=== PATIENT | male | born 1970 | race American Indian/Alaskan Native ===

== ENCOUNTER 2016-02-29 15:57 | Inpatient (IN) | payer OTHER ==
--- NOTE | 2016-02-29 17:36 | Emergency Department Report ---
Chief Complaint: GI Bleed Stated Complaint: RECTAL BLEED Time Seen by Provider: 02/29/16 17:44 - HPI History of Present Illness: Patient here reports that he has been coughing up blood and having rectal bleeding for 2 days. He said that last time he had see had pneumonia with coughing up blood. He said he has hemorrhoids and when he wiped he saw bright red blood several times. He is complaining of generalized weakness. Reports shortness of breath. He said he was seen at [facility] for elevated blood sugar 2 days ago and they treated him and he was discharged. Patient is diabetic she is also has a history of A. fib on Coumadin and has not taken any of his medication today. Denies any fever or chills. Denies any recent weight loss. - ROS Review of Systems: All systems are negative unless stated in HPI above. - Exam Vital Signs: Vital Signs 02/29/16 16:44 Temperature 98.4 F Pulse Rate 126 H Respiratory 20 Rate Blood Pressure 159/108 O2 Sat by Pulse 98 Oximetry Physical Exam: General: This is a 45-year-old male well-nourished well-developed nontoxic in appearance. CV: Tachycardic at 126. Blood pressure is 159/108. A. fib at 110 per EKG . lungs:CTAB. MSE screening note: Focused history and physical exam performed. Due to findings the following was ordered:see [facility] ED Medical Decision Making - Medical Decision Making Medical decision making: Patient seen by provider in triage area. Appropriate protocol activated and patient to main ED to be seen by physician. ED Disposition for MSE Condition: Stable Forms: Accompanied Note
[2016-02-29] MEDS ORDERED: NACL 0.9% 1000 ML 1,000 ML IV ONE (17:39)
[2016-02-29 18:02] LABS: Basophils % (Auto) 0.2 % (0.0-1.8); Eosinophils % (Auto) 0.1 % (0.0-4.3); Hematocrit 33.6 % (35.5-45.6); Hemoglobin 10.6 gm/dl (11.8-15.2); Mean Corpuscular HGB Conc 32 % (32-34); Mean Corpuscular Volume 72 fl (84-94); Platelet Count 443 K/mm3 (140-440); Red Blood Count 4.66 M/mm3 (3.65-5.03); Red Cell Distribution Width 18.8 % (13.2-15.2); White Blood Count 15.9 K/mm3 (4.5-11.0)
[2016-02-29 18:13] LABS: INR 1.69 (0.87-1.13)
[2016-02-29 18:14] LABS: Mean Corpuscular Hemoglobin 23 pg (28-32); Partial Thromboplastin Time 47.9 Sec. (24.2-36.6)
[2016-02-29 19:23] LABS: Bilirubin,Urine NEG (Negative); Blood,Urine NEG (Negative); Ketones,Urine NEG (Negative); Leukocyte Esterase,Urine NEG (Negative); Mucus,Urine FEW /HPF; Nitrite,Urine NEG (Negative); Urobilinogen,Urine < 2.0 mg/dL (<2.0)
[2016-02-29 19:24] LABS: Alanine Aminotransferase 10 units/L (7-56); Albumin 3.3 g/dL (3.9-5); Albumin/Globulin Ratio 0.8 %; Alkaline Phosphatase 151 units/L (35-129); Amylase 86 units/L (27-131); BUN/Creatinine Ratio 13.33; Blood Urea Nitrogen 8 mg/dL (9-20); Calcium 8.8 mg/dL (8.4-10.2); Carbon Dioxide 22 mmol/L (22-30); Glucose 227 mg/dL (75-100); Lipase 16 units/L (13-60); Potassium 4.4 mmol/L (3.6-5.0); Sodium 133 mmol/L (137-145); Total Protein 7.5 g/dL (6.3-8.2)
[2016-02-29 19:26] LABS: Anion Gap 17 mmol/L
[2016-02-29] MEDS ORDERED: ZITHROMAX 500 MG in NACL 0.9% 250ML 250 ML IV ONE (21:20)
[2016-02-29] MEDS ORDERED: ROCEPHIN/NS 1 GM/50 ML 50 ML IV ONE (21:21)
--- NOTE | 2016-02-29 21:32 | XRay Report ---
FINAL REPORT PROCEDURE: XR CHEST ROUTINE 2V TECHNIQUE: PA and lateral chest radiographs were obtained. CPT 00389 HISTORY: hemoptysis COMPARISON: No prior studies are available for comparison. FINDINGS: Heart: Normal. Mediastinum/Vessels: Normal. Lungs/Pleural space: There are bilateral mid and lower lung airspace opacities. Right pleural effusion with fluid along the fissure. Bony thorax: No acute osseous abnormality. Other: IMPRESSION: Right greater than left infiltrates or edema with pleural effusion..
--- NOTE | 2016-02-29 21:36 | Emergency Department Report ---
- General Chief Complaint: GI Bleed Stated Complaint: RECTAL BLEED Time Seen by Provider: 02/29/16 17:49 Source: patient Mode of arrival: Ambulatory Limitations: No Limitations - History of Present Illness Initial Comments: 45-year-old male with a past medical history of type 2 diabetes, hypertension, atrial fibrillation, hyperlipidemia, hyperthyroidism, tuberculosis in 2002, and anemia presents to the hospital complains of coughing blood and shortness of breath since yesterday. Patient developed cough last night that is productive of bloody sputum. Dyspnea on exertion reported. Denies fever, pain, weight loss, night sweats, orthopnea, or PND. Patient also states intermittent rectal bleeding for the last 2 days it has a history of hemorrhoids. Blood is red in color and denies melena. No abdominal pain reported. Patient is on Coumadin for atrial fibrillation but did not take his medications today. Patient was seen at [facility] 2 days ago for elevated blood sugar. He was treated at discharge from the ED. last HIV test 2012 PMD: Dr. Arechiga airport clerk: Dr. Bolaños - Related Data Home Medications Medication Instructions Recorded Confirmed Last Taken Metoprolol [Lopressor TAB] 50 mg PO DAILY 01/23/15 01/27/15 01/24/15 glipiZIDE [Glucotrol] 10 mg PO BID 01/23/15 01/27/15 01/27/15 Previous Rx's Medication Instructions Recorded Last Taken Type Amiodarone [Cordarone 200 MG TAB] 200 mg PO QDAY #30 tablet 10/10/14 01/24/15 Rx Lisinopril [Zestril TAB] 10 mg PO DAILY #30 tablet 10/10/14 01/24/15 Rx Warfarin [Coumadin] 5 mg PO DAILY@1700 #30 tablet 10/10/14 01/24/15 Rx metFORMIN [Glucophage] 1,000 mg PO BID #60 tablet 10/10/14 01/24/15 Rx Famotidine [Pepcid] 20 mg PO BID #28 tablet 01/28/15 Unknown Rx HYDROcodone/APAP 5-325 [Nora 1 each PO Q6HR PRN #12 tablet 01/28/15 Unknown Rx 5/325] Ondansetron [Zofran Odt] 4 mg PO Q8HR #10 tab.rapdis 03/09/15 Unknown Rx Allergies Allergy/AdvReac Type Severity Reaction Status Date / Time No Known Allergies Allergy Verified 10/04/14 10:38 ED Review of Systems ROS: Stated complaint: RECTAL BLEED Other details as noted in HPI Comment: All other systems reviewed and negative Other: Constitutional: No fevers chills Eyes: No eye pain visual changes ENT: No ear pain or throat pain Neck: Denies pain Respiratory: As per HPI Cardiovascular: Denies chest pain, palpitations, syncope GI: Denies abdominal pain, nausea, vomiting, diarrhea : Denies dysuria, urinary frequency, or urgency Musculoskeletal: Denies back pain, joint swelling Skin: Denies rash, lesions, erythema Neurologic: Denies headache, numbness, weakness Psychiatric: Denies suicidal ideation, hallucinations ED Past Medical Hx - Past Medical History Previous Medical History?: Yes Hx Hypertension: Yes Hx Diabetes: Yes (type 2) Hx Tuberculosis: Yes (2002) Additional medical history: hyperthyroid disease. Anemia. hyperlipidemia. AFIB - Surgical History Past Surgical History?: No - Social History Smoking Status: Current Every Day Smoker Substance Use Type: Other - Medications Home Medications: Home Medications Medication Instructions Recorded Confirmed Last Taken Type Amiodarone [Cordarone 200 MG TAB] 200 mg PO QDAY #30 tablet 10/10/14 01/27/15 Rx Lisinopril [Zestril TAB] 10 mg PO DAILY #30 tablet 10/10/14 01/27/15 01/24/15 Rx Warfarin [Coumadin] 5 mg PO DAILY@1700 #30 tablet 10/10/14 01/27/15 01/24/15 Rx metFORMIN [Glucophage] 1,000 mg PO BID #60 tablet 10/10/14 01/27/15 01/24/15 Rx Metoprolol [Lopressor TAB] 50 mg PO DAILY 01/23/15 01/27/15 01/24/15 History glipiZIDE [Glucotrol] 10 mg PO BID 01/23/15 01/27/15 01/27/15 History Famotidine [Pepcid] 20 mg PO BID #28 tablet 01/28/15 Unknown Rx HYDROcodone/APAP 5-325 [Nora 1 each PO Q6HR PRN #12 tablet 01/28/15 Unknown Rx 5/325] Ondansetron [Zofran Odt] 4 mg PO Q8HR #10 tab.rapdis 03/09/15 Unknown Rx ED Physical Exam - General Limitations: No Limitations - Other Other exam information: General: No limitations, patient is alert in no acute distress Head exam: Atraumatic, normocephalic Eyes exam: Normal appearance, pupils equal reactive to light, extraocular movements intact ENT: Moist mucous membrane, normal oropharynx Neck exam: Normal inspection, full range of motion, no meningismus nontender Respiratory exam: Clear to auscultation bilateral, no wheezes, rales, crackles Cardiovascular: Tachycardic fairly regular but with early beats auscultated Abdomen: Soft, nondistended, and nontender, with normal bowel sounds, no rebound, or guarding Rectal: brown stool, guaic positive Extremity: Full range of motion normal inspection no deformity Back: Normal Inspection, full range of motion, no tenderness Neurologic: Alert, oriented x3, cranial nerves intact, no motor or sensory deficit Psychiatric: normal affect, normal mood Skin: Warm, dry, intact ED Course Vital Signs 02/29/16 02/29/16 02/29/16 16:44 21:08 21:40 Temperature 98.4 F 98.0 F Pulse Rate 126 H 109 H Respiratory 20 18 20 Rate Blood Pressure 159/108 Blood Pressure 172/93 [Right] O2 Sat by Pulse 98 98 Oximetry - Reevaluation(s) Reevaluation #1: 02/29/16 21:36 Azithromycin and Rocephin ordered ED Medical Decision Making - Lab Data Result diagrams: 02/29/16 17:46 02/29/16 17:46 Lab Results 02/29/16 02/29/16 02/29/16 Range/Units 17:00 17:43 17:46 WBC 15.9 H (4.5-11.0) K/mm3 RBC 4.66 (3.65-5.03) M/mm3 Hgb 10.6 L (11.8-15.2) gm/dl Hct 33.6 L (35.5-45.6) % MCV 72 L (84-94) fl MCH 23 L (28-32) pg MCHC 32 (32-34) % RDW 18.8 H (13.2-15.2) % Plt Count 443 H (140-440) K/mm3 Lymph % (Auto) 10.9 L (13.4-35.0) % [place] % (Auto) 5.0 (0.0-7.3) % Eos % (Auto) 0.1 (0.0-4.3) % Baso % (Auto) 0.2 (0.0-1.8) % Lymph # 1.7 (1.2-5.4) K/mm3 [place] # 0.8 (0.0-0.8) K/mm3 Eos # 0.0 (0.0-0.4) K/mm3 Baso # 0.0 (0.0-0.1) K/mm3 Seg Neutrophils % 83.8 H (40.0-70.0) % Seg Neutrophils # 13.3 H (1.8-7.7) K/mm3 PT (12.2-14.9) Sec. INR (0.87-1.13) APTT (24.2-36.6) Sec. Sodium (137-145) mmol/L Potassium (3.6-5.0) mmol/L Chloride (98-107) mmol/L Carbon Dioxide (22-30) mmol/L Anion Gap mmol/L BUN (9-20) mg/dL Creatinine (0.8-1.5) mg/dL Estimated GFR ml/min BUN/Creatinine Ratio % Glucose (75-100) mg/dL POC Glucose 218 H (70-105) Calcium (8.4-10.2) mg/dL Total Bilirubin (0.1-1.2) mg/dL AST (5-40) units/L ALT (7-56) units/L Alkaline Phosphatase (35-129) units/L Total Protein (6.3-8.2) g/dL Albumin (3.9-5) g/dL Albumin/Globulin Ratio % Amylase (27-131) units/L Lipase (13-60) units/L Urine Color Yellow (Yellow) Urine Turbidity Clear (Clear) Urine pH 8.0 H (5.0-7.0) Ur Specific [place] 1.017 (1.003-1.030) Urine Protein 100 mg/dl (Negative) mg/dL Urine Glucose (UA) 50 (Negative) mg/dL Urine Ketones Neg (Negative) mg/dL Urine Blood Neg (Negative) Urine Nitrite Neg (Negative) Urine Bilirubin Neg (Negative) Urine Urobilinogen < 2.0 (<2.0) mg/dL Ur Leukocyte Esterase Neg (Negative) Urine WBC (Auto) 3.0 (0.0-6.0) /HPF Urine RBC (Auto) 3.0 (0.0-6.0) /HPF U Epithel Cells (Auto) 1.0 (0-13.0) /HPF Urine Mucus Few /HPF Blood Type Antibody Screen 02/29/16 02/29/16 02/29/16 Range/Units 17:46 17:46 17:46 WBC (4.5-11.0) K/mm3 RBC (3.65-5.03) M/mm3 Hgb (11.8-15.2) gm/dl Hct (35.5-45.6) % MCV (84-94) fl MCH (28-32) pg MCHC (32-34) % RDW (13.2-15.2) % Plt Count (140-440) K/mm3 Lymph % (Auto) (13.4-35.0) % [place] % (Auto) (0.0-7.3) % Eos % (Auto) (0.0-4.3) % Baso % (Auto) (0.0-1.8) % Lymph # (1.2-5.4) K/mm3 [place] # (0.0-0.8) K/mm3 Eos # (0.0-0.4) K/mm3 Baso # (0.0-0.1) K/mm3 Seg Neutrophils % (40.0-70.0) % Seg Neutrophils # (1.8-7.7) K/mm3 PT 19.9 H (12.2-14.9) Sec. INR 1.69 H (0.87-1.13) APTT 47.9 H (24.2-36.6) Sec. Sodium 133 L (137-145) mmol/L Potassium 4.4 (3.6-5.0) mmol/L Chloride 98.0 (98-107) mmol/L Carbon Dioxide 22 (22-30) mmol/L Anion Gap 17 mmol/L BUN 8 L (9-20) mg/dL Creatinine 0.6 L (0.8-1.5) mg/dL Estimated GFR > 60 ml/min BUN/Creatinine Ratio 13.33 % Glucose 227 H (75-100) mg/dL POC Glucose (70-105) Calcium 8.8 (8.4-10.2) mg/dL Total Bilirubin 1.0 (0.1-1.2) mg/dL AST 13 (5-40) units/L ALT 10 (7-56) units/L Alkaline Phosphatase 151 H (35-129) units/L Total Protein 7.5 (6.3-8.2) g/dL Albumin 3.3 L (3.9-5) g/dL Albumin/Globulin Ratio 0.8 % Amylase 86 (27-131) units/L Lipase 16 (13-60) units/L Urine Color (Yellow) Urine Turbidity (Clear) Urine pH (5.0-7.0) Ur Specific [place] (1.003-1.030) Urine Protein (Negative) mg/dL Urine Glucose (UA) (Negative) mg/dL Urine Ketones (Negative) mg/dL Urine Blood (Negative) Urine Nitrite (Negative) Urine Bilirubin (Negative) Urine Urobilinogen (<2.0) mg/dL Ur Leukocyte Esterase (Negative) Urine WBC (Auto) (0.0-6.0) /HPF Urine RBC (Auto) (0.0-6.0) /HPF U Epithel Cells (Auto) (0-13.0) /HPF Urine Mucus /HPF Blood Type O POSITIVE Antibody Screen Negative - EKG Data -: EKG Interpreted by Me (sinus tach 110 PACs) - EKG Data When compared to previous EKG there are: no significant change (compared to ) - Radiology Data Radiology results: report reviewed (chest x-ray: Right versus left infiltrate versus edema) - Medical Decision Making pt placed into res isolation. Rocephin and azithromycin initiated. Plan to admit patient to the hospital for further management - Differential Diagnosis pneumonia, bronchitis, CHF, tuberculosis Critical Care Time: No Critical care attestation.: If time is entered above; I have spent that time in minutes in the direct care of this critically ill patient, excluding procedure time. ED Disposition Clinical Impression: Tachycardia, Pneumonia, Anticoagulated on Coumadin, Hypertension, Hyperglycemia due to type 2 diabetes mellitus, Guaiac + stool Disposition: OP ADMITTED IP TO THIS HOSP Is pt being admited?: Yes Condition: Stable Time of Disposition: 21:38 (Dr houston/hosp)
--- NOTE | 2016-02-29 22:48 | Admit Criteria Form ---
Admission Criteria Documentation: DIABETES Clinical Indications for Admission to Inpatient Care (Place 'X' for any and all applicable criteria): Admission is indicated by presence of ALL (if I & II) or ANY ONE (if III or IV) of the following (1)(2)(3)(4): [ ]I. Diabetes is uncontrolled as indicated by ANY ONE of the following: [ ]a) Diabetic ketoacidosis as indicated by ALL of the following (8): [ ]i) Hyperglycemia (eg, plasma glucose greater than 200 mg/ dL (11.1 mmol/L)) [ ]ii) Acidosis (eg, arterial pH less than 7.30, serum bicarbonate level less than 15 mEq/L (mmol/L)) [ ]iii) Moderate ketonuria or ketonemia [ ]b) Hyperglycemic hyperosmolar state as indicated by ALL of the following(9)(10): [ ]i) Neurologic dysfunction (eg, stupor, coma, hemiparesis , seizure)(13) [ ]ii) Plasma glucose greater than 600 mg/dL (33.3 mmol/L) [ ]iii) Serum osmolality greater than 320 mOsm/kg (mmol/kg) [ ]c) Severe signs or symptoms secondary to hyperglycemia indicated by ANY ONE of the following: [ ]i) Altered mental status(10) [ ]ii) Significant hypovolemia or dehydration [ ]iii) Intractable nausea or vomiting [ ]iv) Unexplained fever or severe infection [ ]v) Severe electrolyte abnormality (eg, hypokalemia, hyperkalemia, hypernatremia) [ ]II. Management at other levels of care (Also use Diabetes: Observation Care as appropriate) is not feasible because of ANY ONE of the following: [ ]a) Condition was not adequately corrected with treatment at other levels of care. [ ]b) Treatment at other levels of care is not appropriate because of condition severity (eg, hyperosmolar coma). [ X]III. Contraindications and/or Inappropriate clinical situations for Observational Care in patients with Diabetes, when ANY ONE of the following is required: [X ]a) Patient require specific diagnostic workup or therapeutic intervention 22 [ ]b) Patient with abnormal vital signs or altered mental status 23 [X ]IV. General contraindications and/or Inappropriate clinical situations for Observational Care in patients with Diabetes, when ANY ONE of the following is required: [ X]a) Prediction of prolongation of LOS based on ANY ONE of the following may be considered as a contraindication for observational care 2, 3, 4, 5, 6, 7, 8, 9, 10, 11 [ ]i) Age > 65 yrs. [ ]ii) Patient arriving by ambulance [ ]iii) Patient with high acuity [ ]iv) Patient requiring vital sign monitoring [X ]v) Patient on IV medication [ ]b) Systolic blood pressures 180mmHg 3,12 [ ]c) Patient with altered mental status including delirium and other alteration of consciousness, (3) [ ]d) Patient whose discharge disposition will be to a fdc home or rehabilitation home should not be managed in Emergency Department Observation Unit. CMS rule requires 3 days hospital stay before such placement.3,13 [ ]e) Patient with failure to thrive due to broad array of etiologies 3,16,17 [ ]f) Inability to ambulate 3,14 Extended stay beyond goal length of stay may be needed for(3)(20): [ ]a) Treatment of precipitating causes [ ]b) Development of hypoglycemia [ ]c) Complications of treatment [ ]d) Complications of decompensated diabetes (eg, acute gastric dilatation, persistent metabolic or neurologic derangement) [ ]e) Active Comorbidities [ ]f) Older patients( 65 years or older) The original [employer] content created by [employer] has been revised. The portions of the content which have been revised are identified through the use of italic text or in bold,and [facility] has neither reviewed nor approved the modified material. All other unmodified content is copyright [employer]. Please see references footnoted in the original [facility]formerly [facility] [employer] edition 2016 Admission Criteria Met: Yes
[2016-02-29] MEDS ORDERED: PERCOCET 5/325 PO PRN (22:53)
[2016-02-29] MEDS ORDERED: DULCOLAX PR PRN (22:53)
[2016-02-29] MEDS ORDERED: TYLENOL PO PRN (22:53)
[2016-02-29] MEDS ORDERED: MILK OF MAGNESIA PO PRN (22:53)
[2016-02-29] MEDS ORDERED: ZOFRAN IV PRN (22:53)
--- NOTE | 2016-02-29 22:56 | Cat Scan Report ---
FINAL REPORT PROCEDURE: CT CHEST WO CON TECHNIQUE: Computerized axial tomography of the chest was performed without contrast material. HISTORY: cough, ab cxr COMPARISON: Chest x-ray TECHNICAL QUALITY: Satisfactory. FINDINGS: Heart and pericardium: Normal. Thoracic aorta: Normal. Pulmonary vasculature: Normal. Lymph nodes: No enlarged thoracic lymph nodes. Lungs: There are bilateral upper and lower lung interstitial ground-glass and airspace opacities. Pleural space: Small right pleural effusion with fluid along the fissure.. Musculoskeletal structures: No significant abnormality. Upper abdominal structures: No significant abnormality. IMPRESSION: Bilateral infiltrates or edema. Right pleural effusion.
--- NOTE | 2016-03-01 01:11 | History and Physical Report ---
History of Present Illness Date of examination: 02/29/16 Date of admission: 02/29/16 22:16 History of present illness: 45 with history of hypertension, diabetes complicated by gastroparesis, ARea guzmán on Coumadin comes to the emergency room with complaints of cough that started last night productive of yellow blood-tinged sputum. He denies any fever or chills, weight loss, night sweats, sick contacts, recent travel. Patient was hospitalized a week ago for gastroparesis. Admits to blood per rectum when he wiped 1 episode. He has a history of hemorrhoids Patient denies chest pain, palpitation, shortness of breath, abdominal pain, hematochezia, dysuria, frequency, focal weakness, dysarthria, fever chills, polydipsia polyuria, hot or cold intolerance, easy bruisability, or rash or bleeding from mucosal membrane, rhinorrhea, epistaxis, earache, tinnitus, blurry vision, eye discharge, anxiety, depression. Other review of systems negative PAST SURGICAL HISTORY: None SOCIAL HISTORY: Denies alcohol, tobacco, drugs FAMILY HISTORY: Hypertension Medications and Allergies Allergies Allergy/AdvReac Type Severity Reaction Status Date / Time No Known Allergies Allergy Verified 10/04/14 10:38 Home Medications Medication Instructions Recorded Confirmed Last Taken Type Warfarin [Coumadin] 5 mg PO DAILY@1700 #30 tablet 10/10/14 01/27/15 02/28/16 Rx metFORMIN [Glucophage] 1,000 mg PO BID #60 tablet 10/10/14 01/27/15 02/28/16 Rx glipiZIDE [Glucotrol] 10 mg PO BID 01/23/15 01/27/15 02/29/16 History Metoclopramide [Reglan ORAL LIQ] 10 mg PO 02/29/16 02/28/16 History Active Meds: Active Medications Acetaminophen (Tylenol) 650 mg PO Q4H PRN PRN Reason: Pain MILD(1-3)/Fever >100.5/TO Bisacodyl (Dulcolax) 10 mg ME QDAY PRN PRN Reason: Constipation unrelieved by MOM Hydralazine HCl (Apresoline) 5 mg IV Q6HR PRN PRN Reason: Hypertension Levofloxacin/Dextrose (Levaquin 750mg/150ml) 150 mls @ 100 mls/hr IV Q24HR SXITO PRN Reason: Protocol Piperacillin Sod/Tazobactam Sod (Zosyn/Ns 4.5gm/100ml) 100 mls @ 100 mls/30 min IV Q8HR SIXTO PRN Reason: Protocol Magnesium Hydroxide (Milk Of Magnesia) 30 ml PO Q4H PRN PRN Reason: Constipation Ondansetron HCl (Zofran) 4 mg IV Q4H PRN PRN Reason: N/V unrelieved by Reglan Oxycodone/Acetaminophen (Percocet 5/325) 1 tab PO Q6H PRN PRN Reason: Pain, Moderate (4-6) Exam - Physical Exam Narrative exam: Gen. appearance: Patient lying in bed, no apparent distress HEENT: Normocephalic, atraumatic, pupils equally round and reactive to light, extraocular movement intact, and no sclericterus,. No JVD or thyromegaly or nodule,neck supple, no carotid bruit ,mucous membranes moist, no exudate or erythema Heart: S1, S2, regular rate and rhythm Lungs: Crackles on the right, breathing comfortable Abdomen: Positive bowel sounds, nontender, nondistended, no organomegaly Extremity: No edema, cyanosis, clubbing Skin: No rash, nodules, warm, dry Neuro: Oriented 3, cranial nerves II-12 intact, speech is fluent, motor and sensory intact - Constitutional Vitals: Temp Pulse Resp BP Pulse Ox 98.7 F 119 H 16 170/107 100 02/29/16 22:48 02/29/16 22:48 02/29/16 22:48 02/29/16 22:48 02/29/16 22:48 Results - Labs CBC & Chem 7: 02/29/16 17:46 02/29/16 17:46 - Imaging and Cardiology EKG: image reviewed Chest x-ray: image reviewed Assessment and Plan Healthcare associated pneumonia, rule out TB Hypertension Diabetes type 2 A. fib with subtherapeutic INR Brown, Heme positive stool History of hemorrhoids Admits medicine Start IV Zosyn, Levaquin Obtain sputum culture, AFB, place on isolation Obtain CT chest Monitor hemoglobin, patient"s positive stool most likely secondary to hemorrhoids Check fingersticks and initiate insulin sliding scale Continue appropriate outpatient medications, start DVT prophylaxis with SCD
[2016-03-01] MEDS: ZOSYN/NS 4.5GM/100ML 100 ML IV SCH ×3 (01:30→14:50)
[2016-03-01 08:31] LABS: Basophils % (Auto) 0.3 % (0.0-1.8); Eosinophils % (Auto) 0.5 % (0.0-4.3); Hematocrit 31.1 % (35.5-45.6); Hemoglobin 9.9 gm/dl (11.8-15.2); Mean Corpuscular HGB Conc 32 % (32-34); Mean Corpuscular Volume 73 fl (84-94); Platelet Count 411 K/mm3 (140-440); Red Blood Count 4.27 M/mm3 (3.65-5.03); Red Cell Distribution Width 18.7 % (13.2-15.2); White Blood Count 10.8 K/mm3 (4.5-11.0)
[2016-03-01 08:43] LABS: Anion Gap 17 mmol/L; BUN/Creatinine Ratio 11.42; Blood Urea Nitrogen 8 mg/dL (9-20); Calcium 8.3 mg/dL (8.4-10.2); Carbon Dioxide 22 mmol/L (22-30); Chloride 100.7 mmol/L (98-107); Glucose 212 mg/dL (75-100); Potassium 4.4 mmol/L (3.6-5.0); Sodium 135 mmol/L (137-145)
[2016-03-01 08:45] LABS: Mean Corpuscular Hemoglobin 23 pg (28-32)
[2016-03-01 08:49] LABS: INR 1.73 (0.87-1.13)
[2016-03-01 08:50] LABS: Partial Thromboplastin Time 52.5 Sec. (24.2-36.6)
[2016-03-01] MEDS: LEVAQUIN 750MG/150ML 150 ML IV SCH (10:40)
--- NOTE | 2016-03-01 14:04 | Progress Note ---
Hospitalist Physical - Constitutional Vitals: Temp Pulse Resp BP Pulse Ox 97.7 F 98 H 14 158/84 100 03/01/16 07:32 03/01/16 07:32 03/01/16 07:32 03/01/16 07:32 03/01/16 07:32 Results - Labs CBC & Chem 7: 03/01/16 08:10 03/01/16 08:10 Labs: Laboratory Last Values WBC 10.8 K/mm3 (4.5-11.0) 03/01/16 08:10 RBC 4.27 M/mm3 (3.65-5.03) 03/01/16 08:10 Hgb 9.9 gm/dl (11.8-15.2) L 03/01/16 08:10 Hct 31.1 % (35.5-45.6) L 03/01/16 08:10 MCV 73 fl (84-94) L 03/01/16 08:10 MCH 23 pg (28-32) L 03/01/16 08:10 MCHC 32 % (32-34) 03/01/16 08:10 RDW 18.7 % (13.2-15.2) H 03/01/16 08:10 Plt Count 411 K/mm3 (140-440) 03/01/16 08:10 Lymph % (Auto) 22.2 % (13.4-35.0) 03/01/16 08:10 [place] % (Auto) 6.7 % (0.0-7.3) 03/01/16 08:10 Eos % (Auto) 0.5 % (0.0-4.3) 03/01/16 08:10 Baso % (Auto) 0.3 % (0.0-1.8) 03/01/16 08:10 Lymph # 2.4 K/mm3 (1.2-5.4) 03/01/16 08:10 [place] # 0.7 K/mm3 (0.0-0.8) 03/01/16 08:10 Eos # 0.1 K/mm3 (0.0-0.4) 03/01/16 08:10 Baso # 0.0 K/mm3 (0.0-0.1) 03/01/16 08:10 Seg Neutrophils % 70.3 % (40.0-70.0) H 03/01/16 08:10 Seg Neutrophils # 7.6 K/mm3 (1.8-7.7) 03/01/16 08:10 PT 20.2 Sec. (12.2-14.9) H 03/01/16 08:10 INR 1.73 (0.87-1.13) H 03/01/16 08:10 APTT 52.5 Sec. (24.2-36.6) H 03/01/16 08:10 Sodium 133 mmol/L (137-145) L 02/29/16 17:46 Potassium 4.4 mmol/L (3.6-5.0) 02/29/16 17:46 Chloride 98.0 mmol/L (98-107) 02/29/16 17:46 Carbon Dioxide 22 mmol/L (22-30) 03/01/16 08:10 Anion Gap 17 mmol/L 02/29/16 17:46 BUN 8 mg/dL (9-20) L 03/01/16 08:10 Creatinine 0.7 mg/dL (0.8-1.5) L 03/01/16 08:10 Estimated GFR > 60 ml/min 03/01/16 08:10 BUN/Creatinine Ratio 11.42 % 03/01/16 08:10 Glucose 212 mg/dL (75-100) H 03/01/16 08:10 POC Glucose 218 (70-105) H 02/29/16 17:43 Calcium 8.3 mg/dL (8.4-10.2) L 03/01/16 08:10 Total Bilirubin 1.0 mg/dL (0.1-1.2) 02/29/16 17:46 AST 13 units/L (5-40) 02/29/16 17:46 ALT 10 units/L (7-56) 02/29/16 17:46 Alkaline Phosphatase 151 units/L (35-129) H 02/29/16 17:46 NT-Pro-B Natriuret Pep 1658 pg/mL (0-450) H 02/29/16 21:06 Total Protein 7.5 g/dL (6.3-8.2) 02/29/16 17:46 Albumin 3.3 g/dL (3.9-5) L 02/29/16 17:46 Albumin/Globulin Ratio 0.8 % 02/29/16 17:46 Amylase 86 units/L (27-131) 02/29/16 17:46 Lipase 16 units/L (13-60) 02/29/16 17:46 Urine Color Yellow (Yellow) 02/29/16 17:00 Urine Turbidity Clear (Clear) 02/29/16 17:00 Urine pH 8.0 (5.0-7.0) H 02/29/16 17:00 Ur Specific [place] 1.017 (1.003-1.030) 02/29/16 17:00 Urine Protein 100 mg/dl mg/dL (Negative) 02/29/16 17:00 Urine Glucose (UA) 50 mg/dL (Negative) 02/29/16 17:00 Urine Ketones Neg mg/dL (Negative) 02/29/16 17:00 Urine Blood Neg (Negative) 02/29/16 17:00 Urine Nitrite Neg (Negative) 02/29/16 17:00 Urine Bilirubin Neg (Negative) 02/29/16 17:00 Urine Urobilinogen < 2.0 mg/dL (<2.0) 02/29/16 17:00 Ur Leukocyte Esterase Neg (Negative) 02/29/16 17:00 Urine WBC (Auto) 3.0 /HPF (0.0-6.0) 02/29/16 17:00 Urine RBC (Auto) 3.0 /HPF (0.0-6.0) 02/29/16 17:00 U Epithel Cells (Auto) 1.0 /HPF (0-13.0) 02/29/16 17:00 Urine Mucus Few /HPF 02/29/16 17:00 Blood Type O POSITIVE 02/29/16 17:46 Antibody Screen Negative 02/29/16 17:46
[2016-03-01] MEDS: REGLAN PO SCH (16:45)
[2016-03-01] MEDS ORDERED: COUMADIN PO SCH (17:00)
[2016-03-01] MEDS: GLUCOTROL PO SCH (18:03)
[2016-03-02] MEDS: REGLAN PO SCH ×6 (01:07→21:48)
[2016-03-02] MEDS: ZOSYN/NS 4.5GM/100ML 100 ML IV SCH ×4 (01:07→21:47)
--- NOTE | 2016-03-02 03:28 | Event Note ---
Date: 03/01/16 Patient is 45 yo with afib, presents with cough which is blood tinged. He also complained of blood on wiping after stools. He is on Coumadin and has hemorrhoids. He was seen and examined. Chest X ray shows bilat infiltrates. Admitted for pneumonia.
[2016-03-02 07:44] LABS: Hematocrit 31.4 % (35.5-45.6); Hemoglobin 10.2 gm/dl (11.8-15.2); Mean Corpuscular HGB Conc 32 % (32-34); Mean Corpuscular Volume 73 fl (84-94); Platelet Count 427 K/mm3 (140-440); Red Blood Count 4.32 M/mm3 (3.65-5.03); Red Cell Distribution Width 18.9 % (13.2-15.2); White Blood Count 7.9 K/mm3 (4.5-11.0)
[2016-03-02 08:07] LABS: Mean Corpuscular Hemoglobin 24 pg (28-32)
[2016-03-02 08:09] LABS: Anion Gap 19 mmol/L; BUN/Creatinine Ratio 11.42; Blood Urea Nitrogen 8 mg/dL (9-20); Calcium 8.8 mg/dL (8.4-10.2); Carbon Dioxide 22 mmol/L (22-30); Chloride 100.8 mmol/L (98-107); Glucose 211 mg/dL (75-100); Potassium 4.4 mmol/L (3.6-5.0); Sodium 137 mmol/L (137-145)
[2016-03-02] MEDS: GLUCOTROL PO SCH ×2 (09:08→17:32)
[2016-03-02] MEDS: LEVAQUIN 750MG/150ML 150 ML IV SCH (10:45)
--- NOTE | 2016-03-02 13:54 | Consultation ---
History of Present Illness Consult date: 03/02/16 Requesting physician: MAN JONES Reason for consult: other (Hemoptysis) History of present illness: 45 yo on Coumadin for afib admitted with few days of cough w/ yellow and blood- tinged sputum, SOB. He is having some L anterior chest pain as well. No fevers, chills, wheezing, prior hx of hemoptysis, orthopnea, PND, LE edema. Was in [facility] ED 1 week ago with N/V/D, resolved now. Active Medications Acetaminophen (Tylenol) 650 mg PO Q4H PRN PRN Reason: Pain MILD(1-3)/Fever >100.5/TO Bisacodyl (Dulcolax) 10 mg SC QDAY PRN PRN Reason: Constipation unrelieved by MOM Glipizide (Glucotrol) 10 mg PO BIDDIAB [facility] Last Admin: 03/02/16 17:32 Dose: 10 mg Hydralazine HCl (Apresoline) 5 mg IV Q6HR PRN PRN Reason: Hypertension Levofloxacin/Dextrose (Levaquin 750mg/150ml) 150 mls @ 100 mls/hr IV Q24HR [facility] PRN Reason: Protocol Last Admin: 03/02/16 10:45 Dose: 100 mls/hr Piperacillin Sod/Tazobactam Sod (Zosyn/Ns 4.5gm/100ml) 100 mls @ 100 mls/30 min IV Q8HR [facility] PRN Reason: Protocol Last Admin: 03/02/16 13:43 Dose: 100 mls/30 min Magnesium Hydroxide (Milk Of Magnesia) 30 ml PO Q4H PRN PRN Reason: Constipation Metoclopramide HCl (Reglan) 10 mg PO Q6H [facility] Last Admin: 03/02/16 17:32 Dose: 10 mg Ondansetron HCl (Zofran) 4 mg IV Q4H PRN PRN Reason: N/V unrelieved by Reglan Oxycodone/Acetaminophen (Percocet 5/325) 1 tab PO Q6H PRN PRN Reason: Pain, Moderate (4-6) Past History Past Medical History: other (Afib, HTN, DM, Gastroparesis) Social history: smoking (quit 01/2016), full code, other (No TB exposures/risk factors; no HIV risk factors). denies: alcohol abuse, prescription drug abuse, IV drug use Family history: other (No pulm issues reported) Medications and Allergies Allergies Allergy/AdvReac Type Severity Reaction Status Date / Time No Known Allergies Allergy Verified 10/04/14 10:38 Home Medications Medication Instructions Recorded Confirmed Last Taken Type RX: Warfarin [Coumadin] 5 mg PO DAILY@1700 #30 tablet 10/10/14 03/01/16 Rx RX: metFORMIN [Glucophage] 1,000 mg PO BID #60 tablet 10/10/14 03/01/16 Rx RX: glipiZIDE [Glucotrol] 10 mg PO BID 01/23/15 03/01/16 02/29/16 History Metoclopramide [Reglan ORAL LIQ] 10 mg PO Q6H 02/29/16 03/01/16 02/28/16 History Active Meds: Active Medications Acetaminophen (Tylenol) 650 mg PO Q4H PRN PRN Reason: Pain MILD(1-3)/Fever >100.5/TO Bisacodyl (Dulcolax) 10 mg SC QDAY PRN PRN Reason: Constipation unrelieved by MOM Glipizide (Glucotrol) 10 mg PO BIDDIAB [facility] Last Admin: 03/02/16 09:08 Dose: 10 mg Hydralazine HCl (Apresoline) 5 mg IV Q6HR PRN PRN Reason: Hypertension Levofloxacin/Dextrose (Levaquin 750mg/150ml) 150 mls @ 100 mls/hr IV Q24HR [facility] PRN Reason: Protocol Last Admin: 03/02/16 10:45 Dose: 100 mls/hr Piperacillin Sod/Tazobactam Sod (Zosyn/Ns 4.5gm/100ml) 100 mls @ 100 mls/30 min IV Q8HR [facility] PRN Reason: Protocol Last Admin: 03/02/16 13:43 Dose: 100 mls/30 min Magnesium Hydroxide (Milk Of Magnesia) 30 ml PO Q4H PRN PRN Reason: Constipation Metoclopramide HCl (Reglan) 10 mg PO Q6H [facility] Last Admin: 03/02/16 11:00 Dose: 10 mg Ondansetron HCl (Zofran) 4 mg IV Q4H PRN PRN Reason: N/V unrelieved by Reglan Oxycodone/Acetaminophen (Percocet 5/325) 1 tab PO Q6H PRN PRN Reason: Pain, Moderate (4-6) Review of Systems All systems: negative (Neg x 10 except as noted in HPI) Physical Examination Vital signs: Vital Signs Temp Pulse Resp BP Pulse Ox 98.4 F 126 H 20 159/108 98 02/29/16 16:44 02/29/16 16:44 02/29/16 16:44 02/29/16 16:44 02/29/16 16:44 General appearance: no acute distress, alert Eyes: non-icteric ENT: oropharynx moist Neck: supple Effort: normal Ascultation: Bilateral: clear Cardiovascular: regular rate and rhythm (no mrg) Gastrointestinal: normoactive bowel sounds, soft, non-tender, non-distended Integumentary: normal Extremities: no cyanosis, no edema, pink and warm Musculoskeletal: no deformities normal mental status, non-focal exam, pupils equal and round mood appropriate, affect normal Results - Laboratory Findings CBC and BMP: 03/02/16 07:24 03/02/16 07:24 PT/INR, D-dimer PT 20.2 Sec. (12.2-14.9) H 03/01/16 08:10 INR 1.73 (0.87-1.13) H 03/01/16 08:10 Abnormal lab findings: Abnormal Labs 03/01/16 03/01/16 03/01/16 08:10 08:10 08:10 Hgb 9.9 L Hct 31.1 L MCV 73 L MCH 23 L RDW 18.7 H Seg Neutrophils % 70.3 H PT 20.2 H INR 1.73 H APTT 52.5 H BUN 8 L Creatinine 0.7 L Glucose 212 H POC Glucose Calcium 8.3 L 03/01/16 03/02/16 03/02/16 18:01 06:10 07:24 Hgb 10.2 L Hct 31.4 L MCV 73 L MCH 24 L RDW 18.9 H Seg Neutrophils % PT INR APTT BUN Creatinine Glucose POC Glucose 298 H 161 H Calcium 03/02/16 03/02/16 07:24 11:40 Hgb Hct MCV MCH RDW Seg Neutrophils % PT INR APTT BUN 8 L Creatinine 0.7 L Glucose 211 H POC Glucose 225 H Calcium - Diagnostic Findings Chest x-ray: report reviewed, image reviewed (bilateral infiltrates, not present 02/24/16) CT scan - chest: report reviewed, image reviewed Assessment and Plan Imp: 1. Chronic afib 2. Mitral stenosis 3. Pulm HTN 2/2 above 4. Hemoptysis/Bilateral infiltrates, suspect probably due to the above although certainly CAP is possible 5. Chronic nicotine dependence, cigs Rec: 1. Cover with Levaquin; can d/c Zosyn (no hospitalizations x last 90 days so no HCAP) 2. Clinical and radiographic suspicion low for TB; recommend d/c airborne precautions 3. Check BNP 4. Recommend cardiology consult in light of valvular heart disease 5. Stop smoking permanently 6. CXR in AM Plan of care reviewed w/ patient, he understands/agrees Thanks for the consult.
--- NOTE | 2016-03-02 15:34 | Progress Note ---
Assessment and Plan Assessment and plan: --Pneumonia/health care associated IV antibiotics, oxygen titrated to O2 sats more than 90% Follow cultures, blood, sputum,Rule out tuberculosis, respiratory isolation Follow Pulmonary evaluation and recommendations --Hypertension: Moderate control, continue current antihypertensives when necessary medications --Diabetes type 2, Accu-Chek sliding scale coverage and ADA diet oral hypoglycemics Check hemoglobin A1c --A. fib rate controlled, on chronic anticoagulation, subtherapeutic INR Hold Coumadin in view of possible rectal bleeding Closely monitor --History of hemorrhoids, heme positive stool ,stool softeners and supportive care GI consult --DVT prophylaxis; --GI prophylaxis with Protonix Closely monitor the patient and adjust the management as needed Possible discharge in 1-2 days if stable History Interval history: Patient seen and evaluated this morning in his room medical records reviewed No new events reported by the nursing staff Patient feels slightly better mild cough nonproductive denies hemoptysis Respiratory isolation Alert awake oriented 3 not in acute distress Vital signs reviewed, stable Hospitalist Physical - Constitutional Vitals: Temp Pulse Resp BP Pulse Ox 97.4 F L 72 18 177/98 98 03/02/16 13:31 03/02/16 13:31 03/02/16 13:31 03/02/16 13:31 03/02/16 13:31 General appearance: Present: no acute distress, well-nourished - EENT Eyes: Present: PERRL, EOM intact - Neck Neck: Present: supple, normal ROM - Respiratory Respiratory effort: normal Respiratory: bilateral: diminished, rhonchi, negative: rales, wheezing - Cardiovascular Rhythm: regular Heart Sounds: Present: S1 & S2 - Extremities Extremities: no ischemia, pulses intact, pulses symmetrical Peripheral Pulses: within normal limits - Abdominal General gastrointestinal: soft, non-tender, non-distended, normal bowel sounds - Integumentary Integumentary: Present: clear, warm - Psychiatric Psychiatric: appropriate mood/affect, cooperative - Neurologic Neurologic: CNII-XII intact, moves all extremities Results - Labs CBC & Chem 7: 03/02/16 07:24 03/03/16 07:11 Labs: Laboratory Last Values WBC 7.9 K/mm3 (4.5-11.0) 03/02/16 07:24 RBC 4.32 M/mm3 (3.65-5.03) 03/02/16 07:24 Hgb 10.2 gm/dl (11.8-15.2) L 03/02/16 07:24 Hct 31.4 % (35.5-45.6) L 03/02/16 07:24 MCV 73 fl (84-94) L 03/02/16 07:24 MCH 24 pg (28-32) L 03/02/16 07:24 MCHC 32 % (32-34) 03/02/16 07:24 RDW 18.9 % (13.2-15.2) H 03/02/16 07:24 Plt Count 427 K/mm3 (140-440) 03/02/16 07:24 Lymph % (Auto) 22.2 % (13.4-35.0) 03/01/16 08:10 [place] % (Auto) 6.7 % (0.0-7.3) 03/01/16 08:10 Eos % (Auto) 0.5 % (0.0-4.3) 03/01/16 08:10 Baso % (Auto) 0.3 % (0.0-1.8) 03/01/16 08:10 Lymph # 2.4 K/mm3 (1.2-5.4) 03/01/16 08:10 [place] # 0.7 K/mm3 (0.0-0.8) 03/01/16 08:10 Eos # 0.1 K/mm3 (0.0-0.4) 03/01/16 08:10 Baso # 0.0 K/mm3 (0.0-0.1) 03/01/16 08:10 Seg Neutrophils % 70.3 % (40.0-70.0) H 03/01/16 08:10 Seg Neutrophils # 7.6 K/mm3 (1.8-7.7) 03/01/16 08:10 PT 20.2 Sec. (12.2-14.9) H 03/01/16 08:10 INR 1.73 (0.87-1.13) H 03/01/16 08:10 APTT 52.5 Sec. (24.2-36.6) H 03/01/16 08:10 Sodium 137 mmol/L (137-145) 03/02/16 07:24 Potassium 4.4 mmol/L (3.6-5.0) 03/02/16 07:24 Chloride 100.8 mmol/L (98-107) 03/02/16 07:24 Carbon Dioxide 22 mmol/L (22-30) 03/02/16 07:24 Anion Gap 19 mmol/L 03/02/16 07:24 BUN 8 mg/dL (9-20) L 03/02/16 07:24 Creatinine 0.7 mg/dL (0.8-1.5) L 03/02/16 07:24 Estimated GFR > 60 ml/min 03/02/16 07:24 BUN/Creatinine Ratio 11.42 % 03/02/16 07:24 Glucose 211 mg/dL (75-100) H 03/02/16 07:24 POC Glucose 225 (70-105) H 03/02/16 11:40 Calcium 8.8 mg/dL (8.4-10.2) 03/02/16 07:24 Total Bilirubin 1.0 mg/dL (0.1-1.2) 02/29/16 17:46 AST 13 units/L (5-40) 02/29/16 17:46 ALT 10 units/L (7-56) 02/29/16 17:46 Alkaline Phosphatase 151 units/L (35-129) H 02/29/16 17:46 NT-Pro-B Natriuret Pep 387.6 pg/mL (0-450) 03/02/16 07:24 Total Protein 7.5 g/dL (6.3-8.2) 02/29/16 17:46 Albumin 3.3 g/dL (3.9-5) L 02/29/16 17:46 Albumin/Globulin Ratio 0.8 % 02/29/16 17:46 Amylase 86 units/L (27-131) 02/29/16 17:46 Lipase 16 units/L (13-60) 02/29/16 17:46 Urine Color Yellow (Yellow) 02/29/16 17:00 Urine Turbidity Clear (Clear) 02/29/16 17:00 Urine pH 8.0 (5.0-7.0) H 02/29/16 17:00 Ur Specific [place] 1.017 (1.003-1.030) 02/29/16 17:00 Urine Protein 100 mg/dl mg/dL (Negative) 02/29/16 17:00 Urine Glucose (UA) 50 mg/dL (Negative) 02/29/16 17:00 Urine Ketones Neg mg/dL (Negative) 02/29/16 17:00 Urine Blood Neg (Negative) 02/29/16 17:00 Urine Nitrite Neg (Negative) 02/29/16 17:00 Urine Bilirubin Neg (Negative) 02/29/16 17:00 Urine Urobilinogen < 2.0 mg/dL (<2.0) 02/29/16 17:00 Ur Leukocyte Esterase Neg (Negative) 02/29/16 17:00 Urine WBC (Auto) 3.0 /HPF (0.0-6.0) 02/29/16 17:00 Urine RBC (Auto) 3.0 /HPF (0.0-6.0) 02/29/16 17:00 U Epithel Cells (Auto) 1.0 /HPF (0-13.0) 02/29/16 17:00 Urine Mucus Few /HPF 02/29/16 17:00 Blood Type O POSITIVE 02/29/16 17:46 Antibody Screen Negative 02/29/16 17:46
--- NOTE | 2016-03-02 18:49 | Echocardiography Report ---
Transthoracic Echocardiogram Indication: Heart Failure BP: 177/98 HR: 78 Conclusions *1. Normal LV function EF 60-65%. *2. Dilated LA. *3. Rheumatic MV with moderate MS, mean gradient 12. Findings Procedure Info: The study quality is good. Left Ventricle: The left ventricular chamber size is normal. Mild concentric left ventricular hypertrophy is observed. Global left ventricular systolic function is normal. The estimated ejection fraction is 60-65%. Left Atrium: The left atrium is moderately dilated. Right Ventricle: The right ventricular cavity size is normal. The right ventricular global systolic function is normal. Right Atrium: The right atrial cavity size is normal. Aortic Valve: The aortic valve is trileaflet. The aortic valve leaflets are mildly thickened. Systolic excursion of the aortic valve is normal. There is trace of aortic regurgitation. There is no evidence of aortic stenosis. Mitral Valve: The mitral valve leaflets appear rheumatic. The mitral valve leaflets are severely thickened. Mild mitral leaflet calcification is visualized. There is doming of the mitral valve leaflets. There is moderate mitral regurgitation. There is moderate mitral stenosis. The mean gradient across the mitral valve is 12 mmHg. Tricuspid Valve: The tricuspid valve is not well visualized. There is mild tricuspid regurgitation. There is evidence of mild pulmonary hypertension. There is no tricuspid stenosis. Pulmonic Valve: The pulmonic valve is not well visualized. There is no evidence of pulmonic regurgitation. There is no pulmonic stenosis. Pericardium: There is no pericardial effusion. No pleural effusion is present. Aorta: There is no dilatation of the aortic root. Pulmonary Artery: The main pulmonary artery is not well visualized. Venous: The inferior vena cava appears normal in size. There is a greater than 50% respiratory change in the inferior vena cava dimension. Contrast: Definity was used to optimize study. Intravenous contrast was used to enhance endocardial border definition. Measurements Chambers MM Name Value Normal Range IVSd (MM) 1.14 cm (0.6 - 1.1) LVPWd (MM) 1.63 cm (0.6 - 1.1) IVS:LVPW ratio 0.7 ratio - LVIDd (MM) 4.7 cm (3.7 - 5.6) LVIDs (MM) 2.49 cm (2 - 2.8) LV FS (Teichholz) (MM) 47 % - LV FS (cube) (MM) 47 % - EF Teichholz (MM) 78.3 % - Ao root diameter (MM) 3.3 cm (2 - 3.7) LA dimension (AP) MM 4.9 cm (1.9 - 4) LA:Ao ratio (MM) 1.48 ratio - AV cusp separation (MM) 2.6 cm (1.5 - 2.6) Chambers 2D Name Value Normal Range IVSd (2D) 1.03 cm (0.6 - 1.1) LVPWd 1.6 cm - LVPWd (2D) 1.75 cm (0.6 - 1.1) IVS:LVPW ratio (2D) 0.59 ratio - LVIDd 4.3 cm - LVIDs 2.6 cm - LVIDd (2D) 4.16 cm (3.7 - 5.6) LVIDs (2D) 2.66 cm (2 - 3.8) LV FS (Teichholz) (2D) 36.1 % - LV FS (cube) (2D) 36.1 % - LV EF (2D) 72 % - EF Teichholz (2D) 66.1 % - Ao root diameter (2D) 3.1 cm (2 - 3.7) LA dimension (AP) 2D 4.5 cm (1.9 - 4) LA:Ao ratio (2D) 1.45 ratio - Volumes/Mass Name Value Normal Range LA ESV SP 4CH (MOD) 59 ml - LV EDV SP 4CH (MOD) 123 ml - LV ESV SP 4CH (MOD) 20 ml - EF SP 4CH (MOD) 84 % - Diastolic/Systolic Function Name Value Normal Range LV septal e' Vmax 0.05 m/sec - LV lateral e' Vmax 0.06 m/sec - Aortic Valve Name Value Normal Range AV VTI 28.6 cm - AV mean gradient 5 mmHg - LVOT diameter 2.2 cm - LVOT VTI 22.5 cm - LVOT mean gradient 2 mmHg - SV LVOT 86 ml - KEVEN (continuity VTI) 2.99 cm2 - Mitral Valve Name Value Normal Range MV Vmax 2.29 m/sec - MV VTI 70.9 cm - MV peak gradient 21 mmHg - MV mean gradient 12 mmHg - MVA (continuity VTI) 1.21 cm2 - Tricuspid Valve Name Value Normal Range TR Vmax 2.86 m/sec - TR peak gradient 33 mmHg - RAP 8 mmHg - RVSP 40 mmHg - Pulmonic Valve/Qp:Qs Name Value Normal Range PV Vmax 0.64 m/sec - PV peak gradient 2 mmHg - PV acceleration time 127 msec -
--- NOTE | 2016-03-02 20:36 | Gastroenterology Consultation ---
History of Present Illness - Reason for Consult Consult date: 03/02/16 Rectal bleeding Requesting physician: JAVON DESAI - History of Present Illness We are consulted by Dr Desai for rectal bleeding. The patient was admitted with pneumonia and tobacco abuse; this has stabilized. However, he was noted to be mildly anemic on admit, and he admits to intermittent rectal bleeding (BRB ) for years. He has always attributed this to his chronic hemorrhoids. He initially said he has had a colonoscopy in the past, but when I described the process to him, he denies a prior study. He does have mild anemia, but there is no hx of recurrent transfusions. He is not taking excess NSAIDs, and he denies dyspepsia, N/V, anorexia, or a hx of PUD. Past History Past Medical History: other (Afib, HTN, DM, Gastroparesis) Social history: smoking (quit 01/2016), full code, other (No TB exposures/risk factors; no HIV risk factors). denies: alcohol abuse, prescription drug abuse, IV drug use Family history: other (No pulm issues reported) Medications and Allergies Allergies Allergy/AdvReac Type Severity Reaction Status Date / Time No Known Allergies Allergy Verified 10/04/14 10:38 Home Medications Medication Instructions Recorded Confirmed Last Taken Type Warfarin [Coumadin] 5 mg PO DAILY@1700 #30 tablet 10/10/14 03/01/16 02/28/16 Rx metFORMIN [Glucophage] 1,000 mg PO BID #60 tablet 10/10/14 03/01/16 02/28/16 Rx glipiZIDE [Glucotrol] 10 mg PO BID 01/23/15 03/01/16 02/29/16 History Metoclopramide [Reglan ORAL LIQ] 10 mg PO Q6H 02/29/16 03/01/16 02/28/16 History Active Meds: Active Medications Acetaminophen (Tylenol) 650 mg PO Q4H PRN PRN Reason: Pain MILD(1-3)/Fever >100.5/TO Bisacodyl (Dulcolax) 10 mg LA QDAY PRN PRN Reason: Constipation unrelieved by MOM Glipizide (Glucotrol) 10 mg PO BIDDIAB [facility] Last Admin: 03/02/16 17:32 Dose: 10 mg Hydralazine HCl (Apresoline) 5 mg IV Q6HR PRN PRN Reason: Hypertension Levofloxacin/Dextrose (Levaquin 750mg/150ml) 150 mls @ 100 mls/hr IV Q24HR [facility] PRN Reason: Protocol Last Admin: 03/02/16 10:45 Dose: 100 mls/hr Piperacillin Sod/Tazobactam Sod (Zosyn/Ns 4.5gm/100ml) 100 mls @ 100 mls/30 min IV Q8HR [facility] PRN Reason: Protocol Last Admin: 03/02/16 13:43 Dose: 100 mls/30 min Magnesium Hydroxide (Milk Of Magnesia) 30 ml PO Q4H PRN PRN Reason: Constipation Metoclopramide HCl (Reglan) 10 mg PO Q6H [facility] Last Admin: 03/02/16 17:32 Dose: 10 mg Ondansetron HCl (Zofran) 4 mg IV Q4H PRN PRN Reason: N/V unrelieved by Reglan Oxycodone/Acetaminophen (Percocet 5/325) 1 tab PO Q6H PRN PRN Reason: Pain, Moderate (4-6) Polyethylene Glycol/Electrolytes (Golytely) 4,000 ml PO ONCE ONE Stop: 03/02/16 21:01 Review of Systems - Review of Systems All systems: negative (as noted in the HPI.) Exam - Constitutional Vital Signs: Temp Pulse Resp BP Pulse Ox 98.2 F 107 H 20 172/96 98 03/02/16 17:10 03/02/16 17:10 03/02/16 17:10 03/02/16 17:10 03/02/16 17:10 General appearance: no acute distress - EENT Eyes: PERRL, EOM intact ENT: hearing intact, poor dentition, no thrush - Neck Neck: supple, normal ROM - Respiratory Respiratory effort: normal Respiratory: bilateral: CTA - Cardiovascular Rhythm: irregularly irregular Heart Sounds: Present: S1 & S2 Extremities: no ischemia, No edema - Gastrointestinal General gastrointestinal: Present: soft, non-tender, non-distended - Integumentary Integumentary: Present: clear, warm, dry - Neurologic Neurological: alert and oriented x3 - Labs CBC & Chem 7: 03/02/16 07:24 03/02/16 07:24 Lab Results: Laboratory Results - last 24 hr 03/02/16 03/02/16 03/02/16 06:10 07:24 07:24 WBC 7.9 RBC 4.32 Hgb 10.2 L Hct 31.4 L MCV 73 L MCH 24 L MCHC 32 RDW 18.9 H Plt Count 427 Sodium 137 Potassium 4.4 Chloride 100.8 Carbon Dioxide 22 Anion Gap 19 BUN 8 L Creatinine 0.7 L Estimated GFR > 60 BUN/Creatinine Ratio 11.42 Glucose 211 H POC Glucose 161 H Calcium 8.8 NT-Pro-B Natriuret Pep 03/02/16 03/02/16 03/02/16 07:24 11:40 17:55 WBC RBC Hgb Hct MCV MCH MCHC RDW Plt Count Sodium Potassium Chloride Carbon Dioxide Anion Gap BUN Creatinine Estimated GFR BUN/Creatinine Ratio Glucose POC Glucose 225 H 204 H Calcium NT-Pro-B Natriuret Pep 387.6 Assessment and Plan - Patient Problems (1) Rectal bleeding Current Visit: Yes Status: Acute Plan to address problem: - Given the mild associated anemia, and need for long-term coumadin, the patient should receive a colonoscopy. - His cardiac TTE and cath results from last 2 years were reviewed; he is an acceptable (mild) risk. - Pneumonia is being treated and patient shows no visible increased WOB or respiratory distress. - Will arrange colonoscopy for tomorrow; continue to hold coumadin. (2) Anemia Current Visit: Yes Status: Acute
[2016-03-02] MEDS ORDERED: GOLYTELY PO ONE (21:00)
[2016-03-03] MEDS: REGLAN PO SCH ×4 (04:52→22:29)
[2016-03-03] MEDS: ZOSYN/NS 4.5GM/100ML 100 ML IV SCH ×3 (06:26→22:29)
[2016-03-03] MEDS: GLUCOTROL PO SCH ×2 (07:42→18:00)
[2016-03-03 07:52] LABS: Anion Gap 19 mmol/L; Blood Urea Nitrogen 7 mg/dL (9-20); Calcium 8.7 mg/dL (8.4-10.2); Carbon Dioxide 22 mmol/L (22-30); Chloride 100.8 mmol/L (98-107); Glucose 204 mg/dL (75-100); Potassium 3.9 mmol/L (3.6-5.0); Sodium 138 mmol/L (137-145)
[2016-03-03 08:09] LABS: INR 1.31 (0.87-1.13)
--- NOTE | 2016-03-03 09:24 | XRay Report ---
CHEST X-RAY, 2 VIEWS: HISTORY: Shortness of breath, follow-up pneumonia or CHF. FINDINGS: Bilateral peribronchial infiltrates have resolved since 02/29/16 exam. The lungs are clear. Trace right pleural effusion remains. Normal heart and mediastinal structures. Normal bony thorax. IMPRESSION: Resolution of the bilateral infiltrates or edema. Trace right pleural effusion remains.
[2016-03-03] MEDS: LEVAQUIN 750MG/150ML 150 ML IV SCH (09:30)
[2016-03-03] MEDS: APRESOLINE IV PRN (12:52)
--- NOTE | 2016-03-03 12:57 | Anesthesia Consultation ---
Anesthesia Consult and Med Hx Date of service: 03/03/16 - Airway Anesthetic Teeth Evaluation: Partials ROM Head & Neck: Adequate Mental/Hyoid Distance: Adequate Mallampati Class: Class II Intubation Access Assessment: Good - Pulmonary Exam CTA: Yes - Cardiac Exam Cardiac Exam: RRR - Pre-Operative Health Status ASA Pre-Surgery Classification: ASA3 Proposed Anesthetic Plan: MAC - Pulmonary Hx Pneumonia: Yes - Cardiovascular System Hx Hypertension: Yes - Endocrine Hx Hyperthyroidism: Yes - Hematic Hx Anemia: Yes - Other Systems Hx Substance Use: Yes
[2016-03-03] MEDS ORDERED: NACL 0.9% 1000 ML 1,000 ML IV SCH (13:00)
--- NOTE | 2016-03-03 14:20 | Progress Note ---
Assessment and Plan Assessment and plan: --Positive stool/rectal bleeding Hemodynamically stable, no new episodes of rectal bleeding GI evaluation noted and appreciated, colonoscopy today Closely monitor H&H and transfuse if needed --Pneumonia/healthcare care associated IV antibiotics, oxygen titrated to O2 sats more than 90% Cultures negative to date, infiltrate significant improvement on repeat chest x- ray Pulmonary following--Hypertension: Moderate control, continue current antihypertensives when necessary medications --Diabetes type 2, Accu-Chek sliding scale coverage and ADA diet oral hypoglycemics Check hemoglobin A1c --A. fib rate controlled, on chronic anticoagulation, subtherapeutic INR Hold Coumadin in view of possible rectal bleeding Closely monitor --History of hemorrhoids, stool softeners and supportive care --DVT prophylaxis; --GI prophylaxis with Protonix Follow colonoscopy, if negative and if patient is stable may discharge home tomorrow History Interval history: Patient seen and evaluated in his room medical records reviewed No new events reported by the nursing staff, scheduled for colonoscopy today Patient shortness of breath and cough completely resolved Alert awake oriented 3 not in acute distress Denies chest pain or shortness of breath Hospitalist Physical - Constitutional Vitals: Temp Pulse Resp BP Pulse Ox 97.8 F 90 29 H 181/104 100 03/03/16 12:42 03/03/16 12:52 03/03/16 12:42 03/03/16 12:52 03/03/16 12:42 General appearance: Present: no acute distress, well-nourished - EENT Eyes: Present: PERRL, EOM intact - Neck Neck: Present: supple, normal ROM - Respiratory Respiratory effort: normal Respiratory: bilateral: diminished, rhonchi (occasional), negative: rales, wheezing - Cardiovascular Rhythm: regular Heart Sounds: Present: S1 & S2 - Extremities Extremities: no ischemia, pulses intact, pulses symmetrical Peripheral Pulses: within normal limits - Abdominal General gastrointestinal: soft, non-tender, non-distended, normal bowel sounds - Integumentary Integumentary: Present: clear, warm - Psychiatric Psychiatric: appropriate mood/affect, cooperative - Neurologic Neurologic: CNII-XII intact, moves all extremities Results - Labs CBC & Chem 7: 03/02/16 07:24 03/03/16 07:11 Labs: Laboratory Last Values WBC 7.9 K/mm3 (4.5-11.0) 03/02/16 07:24 RBC 4.32 M/mm3 (3.65-5.03) 03/02/16 07:24 Hgb 10.2 gm/dl (11.8-15.2) L 03/02/16 07:24 Hct 31.4 % (35.5-45.6) L 03/02/16 07:24 MCV 73 fl (84-94) L 03/02/16 07:24 MCH 24 pg (28-32) L 03/02/16 07:24 MCHC 32 % (32-34) 03/02/16 07:24 RDW 18.9 % (13.2-15.2) H 03/02/16 07:24 Plt Count 427 K/mm3 (140-440) 03/02/16 07:24 Lymph % (Auto) 22.2 % (13.4-35.0) 03/01/16 08:10 [place] % (Auto) 6.7 % (0.0-7.3) 03/01/16 08:10 Eos % (Auto) 0.5 % (0.0-4.3) 03/01/16 08:10 Baso % (Auto) 0.3 % (0.0-1.8) 03/01/16 08:10 Lymph # 2.4 K/mm3 (1.2-5.4) 03/01/16 08:10 [place] # 0.7 K/mm3 (0.0-0.8) 03/01/16 08:10 Eos # 0.1 K/mm3 (0.0-0.4) 03/01/16 08:10 Baso # 0.0 K/mm3 (0.0-0.1) 03/01/16 08:10 Seg Neutrophils % 70.3 % (40.0-70.0) H 03/01/16 08:10 Seg Neutrophils # 7.6 K/mm3 (1.8-7.7) 03/01/16 08:10 PT 16.2 Sec. (12.2-14.9) H 03/03/16 07:11 INR 1.31 (0.87-1.13) H 03/03/16 07:11 APTT 52.5 Sec. (24.2-36.6) H 03/01/16 08:10 Sodium 138 mmol/L (137-145) 03/03/16 07:11 Potassium 3.9 mmol/L (3.6-5.0) 03/03/16 07:11 Chloride 100.8 mmol/L (98-107) 03/03/16 07:11 Carbon Dioxide 22 mmol/L (22-30) 03/03/16 07:11 Anion Gap 19 mmol/L 03/03/16 07:11 BUN 7 mg/dL (9-20) L 03/03/16 07:11 Creatinine 0.7 mg/dL (0.8-1.5) L 03/03/16 07:11 Estimated GFR > 60 ml/min 03/03/16 07:11 BUN/Creatinine Ratio 10.00 % 03/03/16 07:11 Glucose 204 mg/dL (75-100) H 03/03/16 07:11 POC Glucose 200 (70-105) H 03/03/16 06:13 Calcium 8.7 mg/dL (8.4-10.2) 03/03/16 07:11 Total Bilirubin 1.0 mg/dL (0.1-1.2) 02/29/16 17:46 AST 13 units/L (5-40) 02/29/16 17:46 ALT 10 units/L (7-56) 02/29/16 17:46 Alkaline Phosphatase 151 units/L (35-129) H 02/29/16 17:46 NT-Pro-B Natriuret Pep 387.6 pg/mL (0-450) 03/02/16 07:24 Total Protein 7.5 g/dL (6.3-8.2) 02/29/16 17:46 Albumin 3.3 g/dL (3.9-5) L 02/29/16 17:46 Albumin/Globulin Ratio 0.8 % 02/29/16 17:46 Amylase 86 units/L (27-131) 02/29/16 17:46 Lipase 16 units/L (13-60) 02/29/16 17:46 Urine Color Yellow (Yellow) 02/29/16 17:00 Urine Turbidity Clear (Clear) 02/29/16 17:00 Urine pH 8.0 (5.0-7.0) H 02/29/16 17:00 Ur Specific [place] 1.017 (1.003-1.030) 02/29/16 17:00 Urine Protein 100 mg/dl mg/dL (Negative) 02/29/16 17:00 Urine Glucose (UA) 50 mg/dL (Negative) 02/29/16 17:00 Urine Ketones Neg mg/dL (Negative) 02/29/16 17:00 Urine Blood Neg (Negative) 02/29/16 17:00 Urine Nitrite Neg (Negative) 02/29/16 17:00 Urine Bilirubin Neg (Negative) 02/29/16 17:00 Urine Urobilinogen < 2.0 mg/dL (<2.0) 02/29/16 17:00 Ur Leukocyte Esterase Neg (Negative) 02/29/16 17:00 Urine WBC (Auto) 3.0 /HPF (0.0-6.0) 02/29/16 17:00 Urine RBC (Auto) 3.0 /HPF (0.0-6.0) 02/29/16 17:00 U Epithel Cells (Auto) 1.0 /HPF (0-13.0) 02/29/16 17:00 Urine Mucus Few /HPF 02/29/16 17:00 Blood Type O POSITIVE 02/29/16 17:46 Antibody Screen Negative 02/29/16 17:46
[2016-03-03] MEDS ORDERED: WATER FOR IRRIG STERILE IR ONE (15:03)
[2016-03-03] MEDS ORDERED: DIPRIVAN 10 MG/ML IV ONE ×2 (15:18→15:19)
[2016-03-03] MEDS ORDERED: XYLOCAINE MPF 2% ONE (15:22)
--- NOTE | 2016-03-03 15:46 | Post Operative Note ---
Pre-op diagnosis: Rectal bleed Post-op diagnosis: other (Hemorrhoids) Findings: 1. Normal colonic mucosa, with moderately large ext hemorrhoids Procedure: Colonoscopy Anesthesia: MAC Surgeon: ANUJA SERNA Estimated blood loss: none Pathology: none Condition: stable Disposition: floor (Okay to initiate coumadin. Will sign off.)
--- NOTE | 2016-03-03 18:09 | Event Note ---
Date: 03/03/16 Came by the room 3 times earlier today and he was off the floor for a procedure. CXR shows rapid clearance of infiltrates which is more consistent with pulmonary edema and less likely pneumonia. Recommend evaluation by cardiology re: his mitral valve disease which is the likely culprit. Will f/u in AM.
--- NOTE | 2016-03-03 18:10 | Post Anesthesia Evaluation ---
- Post Anesthesia Evaluation Patient Participated: Yes Airway Patent: Yes Stable Respiratory Function: Yes Nausea/Vomiting: No Temp > 96.8F: Yes Pain Manageable: Yes Adequeate Hydration: Yes Anesthesia Complications: No Block Receding Appropriately: Not Applicable Patient on Ventilator: No
--- NOTE | 2016-03-03 20:44 | Operative Report ---
PROCEDURE: Colonoscopy. PREOPERATIVE DIAGNOSIS: Rectal bleed. POSTOPERATIVE DIAGNOSIS: External hemorrhoids. SEDATION: MAC by Anesthesia. HISTORY: The patient is a 45-year-old man with atrial fibrillation, who needs to be on Coumadin. He has occasional rectal bleeding. He has anemia with a hemoglobin of 10.2 and an MCV of 73. Because of this, a colonoscopy is being performed. Procedure, indications, risks, and benefits were explained and consent was obtained. The patient was placed in left lateral decubitus position and sedated. Pipettei video colonoscope was passed through the rectum after digital examination and passed with minimal difficulty to the cecum, which was identified by the ileocecal valve and the appendiceal orifice. Scope was then gradually withdrawn with close inspection of the mucosa. Prep was good. FINDINGS: 1. Visualized colonic mucosa is normal appearing with no evidence of mass lesions, vascular lesions or inflammation. 2. Moderately large external hemorrhoids. 3. Remainder of visualized colonic mucosa is normal appearing. The patient tolerated the procedure well without immediate complications. IMPRESSION: Normal colonoscopy except for hemorrhoids, which account for bleeding. RECOMMENDATIONS: 1. May initiate Coumadin. 2. As regards to anemia and microcytosis, this has been ongoing since 01/2015 at least. I would check iron stores and monitor H and H closely once he is on Coumadin. If there is any indication of upper GI distress or dyspepsia, an upper endoscopy will need to be performed. If he has iron deficiency, an upper endoscopy can be considered in the future. JOB# [id number] HRC/NTS
[2016-03-04 01:38] LABS: Iron 17 ug/dL (49-181); Total Iron Binding Capacity 242 mcg/dL (250-450)
[2016-03-04 06:05] LABS: Basophils % (Auto) 0.6 % (0.0-1.8); Eosinophils % (Auto) 2.1 % (0.0-4.3); Hematocrit 29.5 % (35.5-45.6); Hemoglobin 9.6 gm/dl (11.8-15.2); Mean Corpuscular HGB Conc 32 % (32-34); Mean Corpuscular Hemoglobin 23 pg (28-32); Mean Corpuscular Volume 72 fl (84-94); Platelet Count 431 K/mm3 (140-440); Red Cell Distribution Width 18.3 % (13.2-15.2); White Blood Count 7.5 K/mm3 (4.5-11.0)
[2016-03-04] MEDS: REGLAN PO SCH (06:07)
[2016-03-04] MEDS: ZOSYN/NS 4.5GM/100ML 100 ML IV SCH (06:07)
[2016-03-04 06:25] LABS: Anion Gap 17 mmol/L; BUN/Creatinine Ratio 11.66; Blood Urea Nitrogen 7 mg/dL (9-20); Calcium 8.6 mg/dL (8.4-10.2); Carbon Dioxide 23 mmol/L (22-30); Chloride 104.2 mmol/L (98-107); Glucose 142 mg/dL (75-100); Potassium 3.9 mmol/L (3.6-5.0); Sodium 140 mmol/L (137-145)
[2016-03-04] MEDS: GLUCOTROL PO SCH (09:18)
[2016-03-04] MEDS: LEVAQUIN 750MG/150ML 150 ML IV SCH (09:19)
--- NOTE | 2016-03-04 12:49 | Discharge Summary ---
Providers - Providers Date of Admission: 02/29/16 22:16 Date of discharge: 03/04/16 Attending physician: JAVON DESAI 03/01/16 13:49 Consult to Physician [CONS] Routine Consulting Provider: GALE BECERRA Reason For Exam: bilateral infiltrates Place consult to:: office Notified:: yes Phone number called:: [phone] Was contact made?: Yes If yes, spoke with:: Jyoti Time called:: 16:30 03/01/16 16:47 Consult to Physician [CONS] Routine Consulting Provider: ANUJA TERRY Reason For Exam: heme positive stools, hemorrhoids, on coumadin Place consult to:: Dr. Terry Notified:: office Phone number called:: [phone] Was contact made?: Yes If yes, spoke with:: PAM Time called:: 09:06 Comment:: BREANN NOTIFIED Primary care physician: DINKEY LOCOMOTIVE OPERATOR Hospitalization Condition: Stable Disposition: DISCHARGED TO HOME OR SELFCARE Time spent for discharge: 31 min Core Measure Documentation - Palliative Care Palliative Care/ Comfort Measures: Not Applicable - Core Measures Any of the following diagnoses?: none Exam - Constitutional Vitals: Temp Pulse Resp BP Pulse Ox 97.9 F 80 16 176/96 99 03/04/16 07:37 03/04/16 07:37 03/04/16 07:37 03/04/16 07:37 03/04/16 07:37 General appearance: Present: no acute distress, well-nourished - EENT Eyes: Present: PERRL, EOM intact - Neck Neck: Present: supple, normal ROM - Respiratory Respiratory effort: normal Respiratory: bilateral: diminished, negative: rales, rhonchi, wheezing - Cardiovascular Rhythm: regular Heart Sounds: Present: S1 & S2 - Extremities Extremities: no ischemia, pulses intact, pulses symmetrical Peripheral Pulses: within normal limits - Abdominal General gastrointestinal: Present: soft, non-tender, non-distended, normal bowel sounds - Integumentary Integumentary: Present: clear, warm - Musculoskeletal Musculoskeletal: strength equal bilaterally, generalized weakness - Psychiatric Psychiatric: appropriate mood/affect, cooperative - Neurologic Neurologic: CNII-XII intact, moves all extremities Plan Activity: no restrictions Diet: low salt, diabetic Additional Instructions: Frequent monitoring of INR, target INR 2-3. If you have any bleeding hold Coumadin and contact M.D. Follow up with: PRIMARY CARE, [Primary Care Provider] - 7 Days ANUJA TERRY MD [Staff Physician] - 7 Days ANEESH ROBERSON MD [Staff Physician] - 7 Days ASPEN OWUSU MD [Staff Physician] - 7 Days Forms: Warfarin Discharge Instruction Prescriptions: Azithromycin [Zithromax Z-ZAN] 0 mg PO DAILY #1 tab Famotidine/Ca Carb/Mag Hydrox [Pepcid Complete Tablet Chew] 1 each PO BID #14 tab.chew
[2016-03-04] MEDS: APRESOLINE IV PRN (12:55)
--- NOTE | 2016-03-04 14:10 | Progress Note ---
Assessment and Plan Imp: 1. Chronic afib 2. Mitral stenosis 3. Pulm HTN 2/2 above 4. Hemoptysis/Bilateral infiltrates, suspect pulmonary edema 2/2 above, resolved 5. Chronic nicotine dependence, cigs Rec: 1. Okay to stop antibiotics 2. Recommend cardiology consult in light of valvular heart disease 3. Stop smoking permanently; gave him office information for f/u Plan of care reviewed w/ patient, he understands/agrees Subjective Date of service: 03/04/16 Principal diagnosis: Hemoptysis Interval history: No events. Awake, alert. No hemoptysis. No SOB. On RA. Objective Vital Signs - 12hr 03/04/16 03/04/16 07:37 12:55 Temperature 97.9 F Pulse Rate [ 80 Apical] Respiratory 16 Rate Blood Pressure 180/70 Blood Pressure 176/96 [Left Arm] O2 Sat by Pulse 99 Oximetry Constitutional: no acute distress, alert Eyes: non-icteric ENT: oropharynx moist Neck: supple Effort: normal Ascultation: Bilateral: clear Cardiovascular: regular rate and rhythm (no mrg) Gastrointestinal: normoactive bowel sounds, soft, non-tender, non-distended Integumentary: normal Extremities: no cyanosis, no edema, pink and warm Neurologic: normal mental status, non-focal exam, pupils equal and round Psychiatric: mood appropriate, affect normal CBC and BMP: 03/04/16 05:07 03/04/16 05:07 ABG, PT/INR, D-dimer: PT/INR, D-dimer PT 16.2 Sec. (12.2-14.9) H 03/03/16 07:11 INR 1.31 (0.87-1.13) H 03/03/16 07:11 Abnormal lab findings: Abnormal Labs 03/01/16 03/01/16 03/01/16 08:10 08:10 08:10 Hgb 9.9 L Hct 31.1 L MCV 73 L MCH 23 L RDW 18.7 H Lymph % (Auto) Yell % (Auto) Yell # Seg Neutrophils % 70.3 H PT 20.2 H INR 1.73 H APTT 52.5 H BUN 8 L Creatinine 0.7 L Glucose 212 H POC Glucose Calcium 8.3 L Iron TIBC 03/01/16 03/02/16 03/02/16 18:01 06:10 07:24 Hgb 10.2 L Hct 31.4 L MCV 73 L MCH 24 L RDW 18.9 H Lymph % (Auto) Yell % (Auto) Yell # Seg Neutrophils % PT INR APTT BUN Creatinine Glucose POC Glucose 298 H 161 H Calcium Iron TIBC 03/02/16 03/02/16 03/02/16 07:24 11:40 17:55 Hgb Hct MCV MCH RDW Lymph % (Auto) Yell % (Auto) Yell # Seg Neutrophils % PT INR APTT BUN 8 L Creatinine 0.7 L Glucose 211 H POC Glucose 225 H 204 H Calcium Iron TIBC 03/03/16 03/03/16 03/03/16 06:13 07:11 07:11 Hgb Hct MCV MCH RDW Lymph % (Auto) Yell % (Auto) Yell # Seg Neutrophils % PT 16.2 H INR 1.31 H APTT BUN 7 L Creatinine 0.7 L Glucose 204 H POC Glucose 200 H Calcium Iron TIBC 03/03/16 03/04/16 03/04/16 21:30 00:49 05:07 Hgb 9.6 L Hct 29.5 L MCV 72 L MCH 23 L RDW 18.3 H Lymph % (Auto) 37.0 H Yell % (Auto) 12.1 H Yell # 0.9 H Seg Neutrophils % PT INR APTT BUN Creatinine Glucose POC Glucose 268 H Calcium Iron 17 L TIBC 242 L 03/04/16 03/04/16 05:07 06:06 Hgb Hct MCV MCH RDW Lymph % (Auto) Yell % (Auto) Yell # Seg Neutrophils % PT INR APTT BUN 7 L Creatinine 0.6 L Glucose 142 H POC Glucose 143 H Calcium Iron TIBC Chest x-ray: report reviewed, image reviewed (clear)
[2016-03-04 14:33] VITALS: BP 160/80
== END 2016-03-04 14:48 | disposition home or self-care (01) | DRG 393 ==
LOC: ED 15:57 → 3A 22:16
PROVIDERS: ADMIT Internal Medicine; ATTEND Internal Medicine
PROC: 0DJD8ZZ Inspection of Lower Intestinal Tract, Via Natural or Artificial Opening Endoscopic (ICD-10-PCS; principal; 2016-03-03)
DX: K64.4 Residual hemorrhoidal skin tags (principal); J18.9 Pneumonia, unspecified organism; I10 Essential (primary) hypertension; E78.5 Hyperlipidemia, unspecified; E11.43 Type 2 diabetes mellitus with diabetic autonomic (poly)neuropathy; K31.84 Gastroparesis; I48.2 Chronic atrial fibrillation; I05.0 Rheumatic mitral stenosis; I27.2 Other secondary pulmonary hypertension; F17.210 Nicotine dependence, cigarettes, uncomplicated; D64.9 Anemia, unspecified; Z79.01 Long term (current) use of anticoagulants; Z79.899 Other long term (current) drug therapy; Z82.49 Family history of ischemic heart disease and other diseases of the circulatory system
CPT/HCPCS: 36415; 71020; 71250; 80048; 80053; 81001; 82150; 82271; 82728; 82962; 83550; 83690; 83880; 85025; 85027; 85610; 85730; 86850; 86900; 86901; 87040; 87205; 87449; 93005; 93010; 93306; 96365; 96367; J0360; J0456; J0696; J1956; J2543; J2704; J7030; J7050

== ENCOUNTER 2016-10-05 09:56 | Inpatient (IN) | payer OTHER ==
[2016-10-05] MEDS ORDERED: CARDIZEM ONE ×2 (10:19→10:39)
[2016-10-05] MEDS ORDERED: CARDIZEM IV ONE (10:20)
[2016-10-05 10:34] LABS: Basophils % (Auto) 0.8 % (0.0-1.8); Eosinophils % (Auto) 1.5 % (0.0-4.3); Hematocrit 33.3 % (35.5-45.6); Mean Corpuscular HGB Conc 33 % (32-34); Mean Corpuscular Volume 72 fl (84-94); Platelet Count 499 K/mm3 (140-440); Red Blood Count 4.62 M/mm3 (3.65-5.03); Red Cell Distribution Width 18.3 % (13.2-15.2)
[2016-10-05 10:37] LABS: Mean Corpuscular Hemoglobin 24 pg (28-32)
[2016-10-05 10:45] LABS: INR 2.67 (0.87-1.13)
[2016-10-05] MEDS ORDERED: CARDIZEM PO ONE (10:45)
[2016-10-05 10:46] LABS: Partial Thromboplastin Time 58.3 Sec. (24.2-36.6)
[2016-10-05 10:54] LABS: Anion Gap 19 mmol/L; BUN/Creatinine Ratio 23.33; Blood Urea Nitrogen 14 mg/dL (9-20); Calcium 8.9 mg/dL (8.4-10.2); Carbon Dioxide 22 mmol/L (22-30); Chloride 100.2 mmol/L (98-107); Glucose 301 mg/dL (75-100); Potassium 4.6 mmol/L (3.6-5.0); Sodium 137 mmol/L (137-145)
--- NOTE | 2016-10-05 11:01 | XRay Report ---
PORTABLE CHEST INDICATION: Chest pain, arrhythmia. COMPARISON: 03/03/2016 FINDINGS: Portable, frontal chest radiograph again demonstrates prominent bronchovascular markings centrally with grossly stable cardiomediastinal silhouette and slight nonspecific blunting of the costophrenic angles bilaterally. EKG leads. Stable bones including old healed left mid clavicular deformity. CONCLUSION: No significant interval change, as described. Thank you for the opportunity to participate in this patient's care.
[2016-10-05] MEDS ORDERED: MAGNESIUM SULFATE 2GM/50ML 2 GM/50 ML BAG IV ONE (11:30)
--- NOTE | 2016-10-05 11:35 | Emergency Department Report ---
ED Palpitations HPI - General Chief Complaint: Arrhythmia/Palpitations Stated Complaint: CHEST PAIN Time Seen by Provider: 10/05/16 10:38 Source: patient, family, EMS (ems notes not available at time of chart dictation), RN notes reviewed, old records reviewed Mode of arrival: Stretcher Limitations: No Limitations - History of Present Illness Initial Comments: This is a 46-year-old male. He is previously unknown to me. Past medical history includes diabetes, hypertension, atrial fibrillation, nonsustained ventricular tachycardia. Patient had a cardiac catheterization at this hospital in 2014, which demonstrated medical cardiac disease. Patient reports compliance with his anticoagulation. His primary care doctors is Dr. Arechiga. His yard rigger is Dr. Bolaños The patient presents to the ER with a complaint of shortness of breath, fatigue , palpitations. He is not having any chest pain. There is no leg pain and no leg swelling. No recent trips greater than 4 hours. No recent hospital admissions. Patient was at his primary care doctor's office, and was found to be in A. fib/flutter with RVR, and was sent to the ER for further evaluation. Patient incidentally complains of right gluteal swelling, some discharge, no pain. He was given Bactrim as a prescription, but then instructed by a local pharmacy that he should not be taking it. MD Complaint: rapid heart beat, "heart racing", palpitations, irregular heart beat, atrial fibrillation -: Gradual Context: occured during rest Arrythmia History: atrial fibrillation, on anti-coagulants Associated Symptoms: shortness of breath - Related Data Home Medications Medication Instructions Recorded Confirmed Last Taken glipiZIDE [Glucotrol] 10 mg PO BID 01/23/15 10/05/16 10/04/16 Hydrochlorothiazide [Hctz] 12.5 mg PO QDAY 10/05/16 10/05/16 10/04/16 Metoprolol [Lopressor] 12.5 mg PO BID 10/05/16 10/05/16 10/05/16 Warfarin [Coumadin] 7.5 mg PO DAILY 10/05/16 10/05/16 Unknown Previous Rx's Medication Instructions Recorded Last Taken Type metFORMIN [Glucophage] 1,000 mg PO BID #60 tablet 10/10/14 10/04/16 Rx Allergies Allergy/AdvReac Type Severity Reaction Status Date / Time No Known Allergies Allergy Verified 10/04/14 10:38 ED Review of Systems ROS: Stated complaint: CHEST PAIN Other details as noted in HPI Constitutional: malaise, weakness Eyes: denies: vision change ENT: denies: epistaxis Respiratory: shortness of breath Cardiovascular: palpitations Gastrointestinal: denies: abdominal pain, melena, hematochezia Genitourinary: denies: dysuria Musculoskeletal: denies: back pain Skin: denies: lesions Neurological: weakness. denies: headache ED Past Medical Hx - Past Medical History Previous Medical History?: Yes Hx Hypertension: Yes Hx Diabetes: Yes Hx Tuberculosis: Yes (2002) Additional medical history: hyperthyroid disease. Anemia. hyperlipidemia. AFIB. gastroporesis - Surgical History Past Surgical History?: No - Social History Smoking Status: Former Smoker Substance Use Type: None - Medications Home Medications: Home Medications Medication Instructions Recorded Confirmed Last Taken Type metFORMIN [Glucophage] 1,000 mg PO BID #60 tablet 10/10/14 10/05/16 10/04/16 Rx glipiZIDE [Glucotrol] 10 mg PO BID 01/23/15 10/05/16 10/04/16 History Hydrochlorothiazide [Hctz] 12.5 mg PO QDAY 10/05/16 10/05/16 10/04/16 History Metoprolol [Lopressor] 12.5 mg PO BID 10/05/16 10/05/16 10/05/16 History Warfarin [Coumadin] 7.5 mg PO DAILY 10/05/16 10/05/16 Unknown History ED Physical Exam - General Limitations: No Limitations General appearance: alert, in no apparent distress - Head Head exam: Present: atraumatic, normocephalic - Eye Eye exam: Present: normal appearance, PERRL, EOMI. Absent: nystagmus - ENT ENT exam: Present: normal exam, normal orophraynx, mucous membranes moist, normal external ear exam - Neck Neck exam: Present: normal inspection, full ROM. Absent: tenderness, meningismus - Respiratory Respiratory exam: Present: normal lung sounds bilaterally. Absent: respiratory distress, wheezes, rales, rhonchi, stridor, chest wall tenderness, accessory muscle use, decreased breath sounds - Cardiovascular Cardiovascular Exam: Present: tachycardia, irregular rhythm, normal heart sounds. Absent: systolic murmur, diastolic murmur, rubs, gallop - GI/Abdominal GI/Abdominal exam: Present: soft, normal bowel sounds. Absent: distended, tenderness, guarding, rebound, rigid, pulsatile mass - Rectal Rectal exam: Present: normal inspection, other (right medial gluteal cheek, there is an area of painless induration. There is no redness, pus or streaking. ) - Extremities Exam Extremities exam: Present: normal inspection, full ROM, normal capillary refill. Absent: tenderness, pedal edema, joint swelling, calf tenderness - Back Exam Back exam: Present: normal inspection, full ROM. Absent: tenderness, CVA tenderness (R), CVA tenderness (L), muscle spasm, paraspinal tenderness, vertebral tenderness - Neurological Exam Neurological exam: Present: alert, oriented X3, normal gait, other (Extraocular movements intact. Tongue midline. No facial droop. Facial sensation intact to light touch in the V1, V2, V3 distribution bilaterally. 5 and 5 strength in 4 extremities.. Sensation is intact to light touch in 4 extremities.). Absent : motor sensory deficit - Psychiatric Psychiatric exam: Present: anxious - Skin Skin exam: Present: warm, dry, intact, normal color. Absent: rash ED Course Vital Signs 10/05/16 10/05/16 10/05/16 09:56 10:00 10:01 Temperature Pulse Rate 120 H 113 H 136 H Respiratory 29 H 26 H 30 H Rate Blood Pressure Blood Pressure [Left] O2 Sat by Pulse 100 98 98 Oximetry 10/05/16 10/05/16 10/05/16 10:10 10:15 10:24 Temperature 97.7 F Pulse Rate 135 H 130 H Respiratory 30 H 21 Rate Blood Pressure 110/82 123/90 Blood Pressure 110/82 [Left] O2 Sat by Pulse 98 100 Oximetry 10/05/16 10/05/16 10/05/16 10:30 10:42 10:45 Temperature Pulse Rate 91 H 103 H 108 H Respiratory 28 H 21 Rate Blood Pressure 129/88 123/90 134/90 Blood Pressure [Left] O2 Sat by Pulse 100 100 Oximetry 10/05/16 10/05/16 10/05/16 11:01 11:15 11:30 Temperature Pulse Rate 92 H 83 87 Respiratory 28 H 14 25 H Rate Blood Pressure 122/75 118/67 118/72 Blood Pressure [Left] O2 Sat by Pulse 100 100 Oximetry 10/05/16 10/05/16 10/05/16 11:45 12:00 12:15 Temperature Pulse Rate 84 88 81 Respiratory 21 18 28 H Rate Blood Pressure 122/71 124/68 126/85 Blood Pressure [Left] O2 Sat by Pulse 100 100 98 Oximetry 10/05/16 10/05/16 10/05/16 12:30 12:45 13:00 Temperature Pulse Rate 88 90 77 Respiratory 14 21 26 H Rate Blood Pressure 117/86 126/95 131/87 Blood Pressure [Left] O2 Sat by Pulse 100 Oximetry 10/05/16 10/05/16 10/05/16 13:15 13:30 13:45 Temperature Pulse Rate 81 77 76 Respiratory 18 22 27 H Rate Blood Pressure 130/91 130/86 139/91 Blood Pressure [Left] O2 Sat by Pulse 99 98 Oximetry 10/05/16 10/05/16 14:00 14:15 Temperature Pulse Rate 79 78 Respiratory 22 33 H Rate Blood Pressure 153/97 124/81 Blood Pressure [Left] O2 Sat by Pulse 100 99 Oximetry ED Medical Decision Making - Lab Data Result diagrams: 10/05/16 10:19 10/05/16 10:19 Vital Signs 10/05/16 10/05/16 10/05/16 09:56 10:00 10:01 Temperature Pulse Rate 120 H 113 H 136 H Respiratory 29 H 26 H 30 H Rate Blood Pressure Blood Pressure [Left] O2 Sat by Pulse 100 98 98 Oximetry 10/05/16 10/05/16 10/05/16 10:10 10:15 10:24 Temperature 97.7 F Pulse Rate 135 H 130 H Respiratory 30 H 21 Rate Blood Pressure 110/82 123/90 Blood Pressure 110/82 [Left] O2 Sat by Pulse 98 100 Oximetry 10/05/16 10/05/16 10/05/16 10:30 10:42 10:45 Temperature Pulse Rate 91 H 103 H 108 H Respiratory 28 H 21 Rate Blood Pressure 129/88 123/90 134/90 Blood Pressure [Left] O2 Sat by Pulse 100 100 Oximetry 10/05/16 10/05/16 11:01 11:15 Temperature Pulse Rate 92 H 83 Respiratory 28 H 14 Rate Blood Pressure 122/75 118/67 Blood Pressure [Left] O2 Sat by Pulse 100 Oximetry Lab Results 10/05/16 10/05/16 10/05/16 Range/Units 10:19 10:19 10:19 WBC 10.0 (4.5-11.0) K/mm3 RBC 4.62 (3.65-5.03) M/mm3 Hgb 11.0 L (11.8-15.2) gm/dl Hct 33.3 L (35.5-45.6) % MCV 72 L (84-94) fl MCH 24 L (28-32) pg MCHC 33 (32-34) % RDW 18.3 H (13.2-15.2) % Plt Count 499 H (140-440) K/mm3 Lymph % (Auto) 25.1 (13.4-35.0) % [place] % (Auto) 3.9 (0.0-7.3) % Eos % (Auto) 1.5 (0.0-4.3) % Baso % (Auto) 0.8 (0.0-1.8) % Lymph # 2.5 (1.2-5.4) K/mm3 [place] # 0.4 (0.0-0.8) K/mm3 Eos # 0.1 (0.0-0.4) K/mm3 Baso # 0.1 (0.0-0.1) K/mm3 Seg Neutrophils % 68.7 (40.0-70.0) % Seg Neutrophils # 6.9 (1.8-7.7) K/mm3 PT 28.6 H (12.2-14.9) Sec. INR 2.67 H (0.87-1.13) APTT 58.3 H (24.2-36.6) Sec. Sodium 137 (137-145) mmol/L Potassium 4.6 (3.6-5.0) mmol/L Chloride 100.2 (98-107) mmol/L Carbon Dioxide 22 (22-30) mmol/L Anion Gap 19 mmol/L BUN 14 (9-20) mg/dL Creatinine 0.6 L (0.8-1.5) mg/dL Estimated GFR > 60 ml/min BUN/Creatinine Ratio 23.33 % Glucose 301 H (75-100) mg/dL Calcium 8.9 (8.4-10.2) mg/dL Magnesium (1.7-2.3) mg/dL Troponin T 0.012 (0.00-0.029) ng/mL 10/05/16 Range/Units 10:55 WBC (4.5-11.0) K/mm3 RBC (3.65-5.03) M/mm3 Hgb (11.8-15.2) gm/dl Hct (35.5-45.6) % MCV (84-94) fl MCH (28-32) pg MCHC (32-34) % RDW (13.2-15.2) % Plt Count (140-440) K/mm3 Lymph % (Auto) (13.4-35.0) % [place] % (Auto) (0.0-7.3) % Eos % (Auto) (0.0-4.3) % Baso % (Auto) (0.0-1.8) % Lymph # (1.2-5.4) K/mm3 [place] # (0.0-0.8) K/mm3 Eos # (0.0-0.4) K/mm3 Baso # (0.0-0.1) K/mm3 Seg Neutrophils % (40.0-70.0) % Seg Neutrophils # (1.8-7.7) K/mm3 PT (12.2-14.9) Sec. INR (0.87-1.13) APTT (24.2-36.6) Sec. Sodium (137-145) mmol/L Potassium (3.6-5.0) mmol/L Chloride (98-107) mmol/L Carbon Dioxide (22-30) mmol/L Anion Gap mmol/L BUN (9-20) mg/dL Creatinine (0.8-1.5) mg/dL Estimated GFR ml/min BUN/Creatinine Ratio % Glucose (75-100) mg/dL Calcium (8.4-10.2) mg/dL Magnesium 1.50 L (1.7-2.3) mg/dL Troponin T (0.00-0.029) ng/mL - EKG Data -: EKG Interpreted by Me - EKG Data 10/05/16 11:37 EKG #1 demonstrates atrial flutter with variable conduction, 103 bpm, not morphologically consistent with STEMI. Repeat EKG after diltiazem demonstrates persistent flutter with variable conduction, abnormal ST morphology, not morphologically consistent with STEMI. - Radiology Data Radiology results: report reviewed, image reviewed X-ray of the chest is negative for acute disease - Medical Decision Making Differential diagnosis: Electrolyte derangement, pneumonia, urinary tract infection, acute coronary syndrome, a flutter with RVR Assessment and plan: 46-year-old male who presents with a flutter with variable rate and RVR. He has rates as high as the 130s. He has some chest pressure but is hemodynamically stable. He received diltiazem IV and then orally, and was found to be hypomagnesemic. No pulmonary embolus or DVT risk factors, low risk by well's criteria, INR therapeutic. Denies irritative and obstructive urinary symptoms. Case is discussed with cardiology on-call, Justina mcdonough, and they will follow as a consult. Case is presented to the hospital physician, Dr. Mccracken, and he accepts the patient to his service. Critical Care Time: Yes Critical care time in (mins) excluding proc time.: 35 Critical care attestation.: If time is entered above; I have spent that time in minutes in the direct care of this critically ill patient, excluding procedure time. Critical Care Time: Critical care time included multiple bedside evaluations, interpretation of laboratory studies, radiology studies, time spent managing critically ill patient with a flutter with RVR, tachycardic to the 130s, requiring IV diltiazem. This does not include procedure time. ED Disposition Clinical Impression: Atrial flutter with rapid ventricular response Disposition: OP ADMIT IP TO THIS HOSP Is pt being admited?: Yes Condition: Good Referrals: PRIMARY CARE, [Primary Care Provider] - 3-5 Days
--- NOTE | 2016-10-05 12:37 | History and Physical Report ---
History of Present Illness Chief complaint: My heart was jumping History of present illness: 46 YO Male with AF, HTN, DM, Rheumatic Heart valve Disease, HLD, NSVT, Gastroparesis presents to ED for evaluation. Pt states that he has experienced shortness of breath, fatigue, and palpitations that began this morning around 0900 hrs, with worsening symptoms over the past 5 hours. Patient presented to his primary care doctor's office for evaluation, and was found to be in A. fib/ flutter with RVR. Pt was sent to the ER for further evaluation. Pt denies fever , chills, NVD, Syncope, leg swelling, calf pain, BRBPR, prolonged travel/ immobility, Individual/family history of DVT/PE. Past History Past Medical History: atrial fib, diabetes, hypertension, hyperlipidemia Past Surgical History: No surgical history, Other (reviewed) Social history: , lives with family. denies: smoking, alcohol abuse, prescription drug abuse, IV drug use Family history: diabetes, hypertension Medications and Allergies Allergies Allergy/AdvReac Type Severity Reaction Status Date / Time No Known Allergies Allergy Verified 10/04/14 10:38 Home Medications Medication Instructions Recorded Confirmed Last Taken Type metFORMIN [Glucophage] 1,000 mg PO BID #60 tablet 10/10/14 10/05/16 10/04/16 Rx glipiZIDE [Glucotrol] 10 mg PO BID 01/23/15 10/05/16 10/04/16 History Hydrochlorothiazide [Hctz] 12.5 mg PO QDAY 10/05/16 10/05/16 10/04/16 History Metoprolol [Lopressor] 12.5 mg PO BID 10/05/16 10/05/16 10/05/16 History Warfarin [Coumadin] 7.5 mg PO DAILY 10/05/16 10/05/16 Unknown History Review of Systems All systems: negative Constitutional: no weight loss Ears, nose, mouth and throat: no ear pain Cardiovascular: palpitations, shortness of breath, no chest pain Respiratory: no cough, no cough with sputum, no excessive sputum Gastrointestinal: no abdominal pain, no nausea, no vomiting Genitourinary Male: no dysuria, no hematuria, no flank pain Rectal: no pain, no incontinence Musculoskeletal: no neck stiffness, no neck pain, no shooting arm pain Integumentary: no rash, no pruritis, no redness Neurological: no transient paralysis, no weakness, no parathesias Psychiatric: no anxiety, no memory loss, no change in sleep habits Endocrine: no cold intolerance, no heat intolerance, no polyphagia Hematologic/Lymphatic: no easy bruising Allergic/Immunologic: no urticaria, no allergic rhinitis Exam - Constitutional Vitals: Temp Pulse Resp BP Pulse Ox 97.7 F 84 21 122/71 100 10/05/16 10:10 10/05/16 11:45 10/05/16 11:45 10/05/16 11:45 10/05/16 11:45 General appearance: Present: mild distress - EENT Eyes: Present: PERRL ENT: hearing intact, clear oral mucosa - Neck Neck: Present: supple, normal ROM - Respiratory Respiratory effort: normal Respiratory: bilateral: diminished - Cardiovascular Rhythm: irregularly irregular - Extremities Extremities: pulses symmetrical, No edema Peripheral Pulses: within normal limits - Abdominal General gastrointestinal: Present: soft, non-tender, non-distended, normal bowel sounds Male genitourinary: Present: normal - Integumentary Integumentary: Present: clear, warm, dry - Musculoskeletal Musculoskeletal: generalized weakness - Psychiatric Psychiatric: appropriate mood/affect, intact judgment & insight - Neurologic Neurologic: CNII-XII intact, moves all extremities Results - Labs CBC & Chem 7: 10/05/16 10:19 10/05/16 10:19 Labs: Abnormal lab results 10/05/16 10/05/16 10/05/16 Range/Units 10:19 10:19 10:19 Hgb 11.0 L (11.8-15.2) gm/dl Hct 33.3 L (35.5-45.6) % MCV 72 L (84-94) fl MCH 24 L (28-32) pg RDW 18.3 H (13.2-15.2) % Plt Count 499 H (140-440) K/mm3 PT 28.6 H (12.2-14.9) Sec. INR 2.67 H (0.87-1.13) APTT 58.3 H (24.2-36.6) Sec. Creatinine 0.6 L (0.8-1.5) mg/dL Glucose 301 H (75-100) mg/dL Magnesium (1.7-2.3) mg/dL TSH (0.270-4.200) mlU/mL 10/05/16 10/05/16 Range/Units 10:55 10:55 Hgb (11.8-15.2) gm/dl Hct (35.5-45.6) % MCV (84-94) fl MCH (28-32) pg RDW (13.2-15.2) % Plt Count (140-440) K/mm3 PT (12.2-14.9) Sec. INR (0.87-1.13) APTT (24.2-36.6) Sec. Creatinine (0.8-1.5) mg/dL Glucose (75-100) mg/dL Magnesium 1.50 L (1.7-2.3) mg/dL TSH 0.267 L (0.270-4.200) mlU/mL Assessment and Plan - Patient Problems (1) Atrial flutter with rapid ventricular response Current Visit: Yes Status: Acute Plan to address problem: CArdiology consulted, continue rate control, and anticoagulation, supportive care, telemetry monitoring. (2) HLD (hyperlipidemia) Current Visit: Yes Status: Acute Qualifiers: Hyperlipidemia type: H Plan to address problem: low cholesterol diet, lipid panel, statin therapy (3) Gastroparesis Current Visit: Yes Status: Acute Plan to address problem: Frequent small meals, early ambulation, supportive care. (4) Hyperglycemia due to type 2 diabetes mellitus Current Visit: No Status: Acute Qualifiers: Diabetes mellitus intermediate project manager insulin use: D Plan to address problem: ADA diet, insulin, accu check (5) Hypertension Current Visit: No Status: Chronic Qualifiers: Hypertension type: H Plan to address problem: Monitor BP q shift, resume home medication (6) DVT prophylaxis Current Visit: Yes Status: Acute
[2016-10-05] MEDS ORDERED: DULCOLAX PR PRN (12:38)
[2016-10-05] MEDS ORDERED: PROVENTIL IH PRN (12:38)
[2016-10-05] MEDS ORDERED: ZOFRAN IV PRN (12:38)
[2016-10-05] MEDS ORDERED: TYLENOL PO PRN (12:38)
[2016-10-05] MEDS ORDERED: MILK OF MAGNESIA PO PRN (12:38)
[2016-10-05] MEDS ORDERED: D50W (25GM) Syringe IV PRN (12:42)
--- NOTE | 2016-10-05 13:00 | Admit Criteria Form ---
Admission Criteria Documentation: CARDIOLOGY GRG Clinical Indications for Admission to Inpatient Care ([place]/check or initial the applicable condition/criteria) Hospital admission is needed for appropriate care of the patient because of ANY ONE of the following: [ ] I. Hemodynamic instability as indicated by ALL of the following (1)(2)(3) (4)(5)(6)(7)(8)(9)(10) [ ]a) Vital sign abnormality not readily corrected by appropriate treatment with 12-24 hours for ANY ONE: [ ]i) Hypotension that persists despite appropriate treatment (eg, volume repletion) [ ]ii) Tachycardiathat persists despite appropriate tx ( e.g., analgesia, fluids, sedation as indicated [ ]iii) Orthostatic vital sign changes that persists despite appropriate treatment (eg, volume repletion) [ ]b) Vital sign abnormailty that is severe indicated by ANY ONE of the following: [ ]i) Inadequate perfusion indicated by ANY ONE of the following: [ ] 1) Lactic acidosis (> 2 mmol/L) [ ] 2) New abnormal capillary refill (> 3 seconds) [ ] 3) Reduced urine output [ ] 4) New altered mental status [ ] 5) Myocardial Ischemia [ ] 6) Other metabolic acidosis (arterial pH <7.35 ) not otherwise explained. [ ]ii) Mean arterial pressure[A] less than 60 mm Hg [ ]iii) Mean arterial pressure[A] less than 70 mm Hg after 30 minutes of appropriate treatment (eg, fluid resuscitation) [ ]iv) Sustained heart rate greater than 120 beats per minute in adult or child 6 years or older[B] [ ]v) IV inotropic or vasopressor medication required to maintain adequate blood pressure or perfusion [ ] II. Severe heart failure as indicated by ANY ONE of the following(17)(18) [ ]a) Respiratory distress [ ]b) Hypotension [ ]c) Debilitating anasarca refractory to therapy (eg, tissue breakdown with infection)[C](19) [ ]d) Cardiac arrhythmias of immediate concern [ ]e) Myocardial ischemia [ ] III. Cardiac arrhythmias or findings of immediate concern indicated by ANY ONE of the following (21)(22): [ ] a) Heart rhythms that are inherently dangerous or unstable indicated by ANY ONE of the following (23)(24)(25): [ ] i) Resuscitated ventricular fibrillation or cardiac arrest [ ] ii) Ventricular escape rhythm [ ] iii) Sustained ventricular tachycardia (30 seconds or more of ventricular rhythm at greater than 100 beats per minute) [ ] iv) Nonsustained ventricular tachycardia and ANY ONE of the following: [ ] 1) Suspected cardiac ischemia as cause or consequence of ventricular tachycardia [ ] 2) Acute myocarditis [ ] b) Unstable cardiac conduction defects indicated by ANY ONE of the following(25)(26)(27) [ ] i) Type II second-degree atrioventricular block [ ]ii) Third-degree atrioventricular block [ ]iii) New-onset left bundle branch block with suspected myocardial ischemia [ ]c) Any heart rhythm and ANY ONE of the following (23)(24)(28)(29) (30) [ ] i) Continuous long-term ECG monitoring needed (e.g., initiation of drug requiring monitoring for more than 24 hours) [ ] ii) Patient has automatic implanted cardioverter defibrillator that is repeatedly firing, malfunctioning, or in need of immediate adjustment of settings beyond the scope of ambulatory or observation care [ ]d) Heart rhythms of concern due to ANY ONE of the following: [ ] i) Hypotension [ ] ii) Respiratory distress [ ] iii) Association with other significant symptoms (e.g., bradycardia with syncope or ongoing dizziness, supraventricular tachycardia with chest pain (28)(29)(31) [ ] IV. Monitoring for cardiac contusion beyond the scope of observation care needed [A](32)(33)(34) [ ] V. Surgical or device complication (e.g., valve replacement complication , ICD disfunction or pacemaker dysfunction) (49)(50)(51)(52)(53)(54) [ ] . Inpatient palliative care needed. [F](51)(52) Also use Inpatient Palliative Care Criteria [ ] VII. Nonbacterial thrombotic (marantic) endocarditis(43)(44)(55)(56)(57) [X ] VIII. Cardiology condition, symptom, or finding for which emergency and observation care has failed or are not considered appropriate. [ ] IX. Acute valvular disease requiring inpatient as indicated by ANY ONE of the following (40)(41) [ ]a) Acute valvular regurgitation (42) [ ]b) Noninfectious valvulitis (43)(44) [ ]c) Obstructive valve thrombosis (45)(46) [ ]d) Paravalvular leak(47)(48) [ ]e) Other significant valvular disorder remaining after emergency or observation level of care (as appropriate) [ ]X. Pericardial disease requiring inpatient treatment as indicated by ANY ONE of the following (35)(36)(37)(38) [ ]a) Suspected tamponade [ ]b) Hemopericardium [ ]c) Other significant pericardial disorder remaining after emergency or observation level of care (as appropriate)(39) [ ] XI. Cardiac ischemia beyond scope of emergency and observation care. [ ] XII. Cyanotic heart disease requiring inpatient care as indicated by 1 or more of the following(58)(59)(60): [ ]a) Acute onset of hypoxemia [ ]b) Exacerbation [ ] XIII. Hypertension requiring inpatient treatment as indicated by ANYONE of the following(11)(12)(13)(14): [ ]a) Severe hypertension (SBP greater than 180 mm Hg or DBP greater than 110 mm Hg, or greater than the 95th percentile for age, gender, and height in pediatric patients) that cannot be controlled (eg, to SBP less than 160 mm Hg and DBP less than 100 mm Hg) by emergency department or observation care treatment(15) [ ]b) Acute end organ damage secondary to hypertension (SBP greater than 140 mm Hg or DBP greater than 90 mm Hg) as indicated by ANYONE of the following: [ ] i) Hypertensive encephalopathy (eg, Altered mental status)(16) [ ] ii) Cerebral infarction [ ] iii) Intracranial hemorrhage [ ] iv) Myocardial ischemia or infarction [ ] v) Heart failure (eg, pulmonary edema) [ ] vi) Aortic dissection [ ] vii) Increased creatinine (new) with reduction of more than 50% in estimated glomerular filtration rate from baseline [ ] viii) Papilledema [ ] ix) Retinal hemorrhage [ ] x) Microangiopathic hemolytic anemia [ ] xi) Seizure [ ] xii) Other significant finding secondary to hypertension [ ] XIV. Complications of transplanted heart indicated by ANY ONE of the following(61): [ ]a) Acute graft rejection requiring inpatient management (eg, intravenous imunosuppression)(62)(63) [ ]b) Acute graft heart failure indicated by ANY ONE of the following(64): [ ] i) Hemodynamic instability [ ] ii) Cardiac arrhythmias of immediate concern [ ] iii) Pulmonary edema that is very severe (eg, mechanical ventilation needed, imminent or likely, need for 100% oxygen to keep oxygen saturation above 90%) [ ] iv) Pulmonary edema that is persistent as indicated by ALL of the following: [ ] 1) New need for oxygen therapy to keep oxygen saturation above 90 % (or increased FiO2 need from baseline) [ ] 2) Has not improved sufficiently with emergency department or observation care IV diuretics or other heart failure treatments[E]. [ ] iv) Altered mental status that is severe or persistent [ ] iv) Increased creatinine (new on laboratory test) with reduction of more than 50% in estimated glomerular filtration rate from baseline [ ] iv) Progressively (ongoing) rising creatinine (known from past laboratory test) with reduction of more than 25% in estimated glomerular filtration rate from baseline [ ] iv) Acute renal failure [ ] iv) Acute peripheral ischemia (eg, examination shows pulseless, cool, mottled, or cyanotic extremity) [ ] iv) Pulmonary artery catheter monitoring needed [ ] iv) Other sign or symptom of heart failure requiring inpatient treatment (ie, too severe or not responsive to outpatient and observation care treatment) [ ]c) Infection requiring inpatient management (eg, Hemodynamic instability, need for intravenous antimicrobial treatment)(66)(67)(68)(69)(70) [ ]d) Cardiac allograft vasculopathy requiring inpatient management (eg evidence of cardiacischemia)(71) [ ]e) Other complication of transplanted heart (eg, stroke, severe pulmonary hypertension, severe valvular dysfunction) requiring inpatient management(72) The original [employer] content created by [employer] has been revised. The portions of the content which have been revised are identified through the use of italic text or in bold, and [facility] has neither reviewed nor approved the modified material. All other unmodified content is copyright [facility]. Please see references footnoted in the original [facility] edition 2017 Admission Criteria Met: Yes
[2016-10-05] MEDS ORDERED: CORDARONE IV ONE ×2 (14:36→15:30)
--- NOTE | 2016-10-05 14:48 | Consultation ---
History of Present Illness Consult date: 10/05/16 Consult reason: other (Atrial flutter) History of present illness: This is a 46yr old male with a history of Rheumatic heart disease. A right and left cardiac catheterization, 2 years ago, showed mild mitral stenosis with a mean mitral valve gradient of 6.8mmHg. Coronaries were negative for significant coronary artery disease. Normal left ventricular ejection fraction. He has paroxysmal atrial fibrillation and is on warfarin for anticoagulation. He also has Hypertension and Diabetes. He presents to the ED with palpitations. He was found to be in atrial flutter with a rapid ventricular response. Cardiac consultation requested. He was treated with Diltiazem and has since returned to a sinus rhythm. Labs showed an therapeutic INR of 2.6 but a low serum magnesium of 1.5. Medications and Allergies Allergies Allergy/AdvReac Type Severity Reaction Status Date / Time No Known Allergies Allergy Verified 10/04/14 10:38 Home Medications Medication Instructions Recorded Confirmed Last Taken Type metFORMIN [Glucophage] 1,000 mg PO BID #60 tablet 10/10/14 10/05/16 10/04/16 Rx glipiZIDE [Glucotrol] 10 mg PO BID 01/23/15 10/05/16 10/04/16 History Hydrochlorothiazide [Hctz] 12.5 mg PO QDAY 10/05/16 10/05/16 10/04/16 History Metoprolol [Lopressor] 12.5 mg PO BID 10/05/16 10/05/16 10/05/16 History Warfarin [Coumadin] 7.5 mg PO DAILY 10/05/16 10/05/16 Unknown History Active Meds: Active Medications Acetaminophen (Tylenol) 650 mg PO Q4H PRN PRN Reason: Pain MILD(1-3)/Fever >100.5/TO Albuterol (Proventil) 2.5 mg IH Q4HRT PRN PRN Reason: Shortness Of Breath Amiodarone HCl (Cordarone) 300 mg IV ONCE ONE Stop: 10/05/16 14:37 Amiodarone HCl (Cordarone) 200 mg PO ONCE ONE Stop: 10/05/16 16:01 Amiodarone HCl (Cordarone) 200 mg PO QDAY SIXTO Bisacodyl (Dulcolax) 10 mg GA QDAY PRN PRN Reason: Constipation unrelieved by MOM Dextrose (D50w (25gm)) 50 ml IV PRN PRN PRN Reason: Hypoglycemia Hydrochlorothiazide (Hctz) 12.5 mg PO QDAY [facility] Insulin Aspart (Novolog) 0 units SUB-Q ACHS SIXTO PRN Reason: Protocol Magnesium Hydroxide (Milk Of Magnesia) 30 ml PO Q4H PRN PRN Reason: Constipation Metoprolol Tartrate (Lopressor) 50 mg PO BID [facility] Ondansetron HCl (Zofran) 4 mg IV Q8H PRN PRN Reason: N/V unrelieved by Reglan Warfarin Sodium (Coumadin) 7.5 mg PO DAILY@1700 [facility] Physical Examination Vital Signs Pulse Resp Pulse Ox 120 H 29 H 100 10/05/16 09:56 10/05/16 09:56 10/05/16 09:56 General appearance: no acute distress HEENT: Positive: PERRL Neck: Positive: trachea midline Cardiac: Positive: Reg Rate and Rhythm Lungs: Positive: Decreased Breath Sounds Neuro: Positive: Grossly Intact Results 10/05/16 10:19 10/05/16 10:19 Coagulation 10/05/16 Range/Units 10:19 PT 28.6 H (12.2-14.9) Sec. INR 2.67 H (0.87-1.13) APTT 58.3 H (24.2-36.6) Sec. CBC 10/05/16 Range/Units 10:19 WBC 10.0 (4.5-11.0) K/mm3 RBC 4.62 (3.65-5.03) M/mm3 Hgb 11.0 L (11.8-15.2) gm/dl Hct 33.3 L (35.5-45.6) % Plt Count 499 H (140-440) K/mm3 Lymph # 2.5 (1.2-5.4) K/mm3 [place] # 0.4 (0.0-0.8) K/mm3 Eos # 0.1 (0.0-0.4) K/mm3 Baso # 0.1 (0.0-0.1) K/mm3 Comprehensive Metabolic Panel 10/05/16 Range/Units 10:19 Sodium 137 (137-145) mmol/L Potassium 4.6 (3.6-5.0) mmol/L Chloride 100.2 (98-107) mmol/L Carbon Dioxide 22 (22-30) mmol/L BUN 14 (9-20) mg/dL Creatinine 0.6 L (0.8-1.5) mg/dL Glucose 301 H (75-100) mg/dL Calcium 8.9 (8.4-10.2) mg/dL Assessment and Plan Paroxysmal Afib/flutter currently in sinus rhythm Diabetes mellitus -uncontrolled Hypertension Rheumatic Mitral valve disease moderate MS, mean gradient 12 mmHg. EF 60-65% on echo 02/2016. Recommendations: We will start Amiodarone for suppression of atrial fibrillation. We will also increase his beta dora therapy. Monitor overnight and discharge home tomorrow with an outpatient cardiac follow up in 1 week.
[2016-10-05] MEDS ORDERED: D5W IV ONE (15:30)
[2016-10-05] MEDS ORDERED: CORDARONE PO ONE (16:00)
[2016-10-05] MEDS ORDERED: NOVOLOG SUB-Q ONE (16:44)
[2016-10-05] MEDS: NOVOLOG SUB-Q SCH ×2 (16:47→22:13)
[2016-10-05] MEDS ORDERED: LOPRESSOR PO SCH (22:00)
[2016-10-05] MEDS: LOPRESSOR PO SCH (22:13)
[2016-10-06 06:42] LABS: INR 1.93 (0.87-1.13)
[2016-10-06] MEDS: LOPRESSOR PO SCH (09:25)
[2016-10-06] MEDS: NOVOLOG SUB-Q SCH (09:26)
[2016-10-06] MEDS ORDERED: HCTZ PO SCH (10:00)
[2016-10-06] MEDS ORDERED: CORDARONE PO SCH (10:00)
[2016-10-06] MEDS ORDERED: COUMADIN PO SCH ×2 (10:00→17:00)
--- NOTE | 2016-10-06 10:29 | Discharge Summary ---
Providers - Providers Date of Admission: 10/05/16 12:38 Attending physician: MARY GUY MD Primary care physician: MEHDI SWAIN MD Hospitalization Condition: Good Hospital course: 46-year-old male with a past medical history of rheumatic heart disease, moderate mitral stenosis. Has a history of negative left and right heart catheterization 2 years ago, paroxysmal atrial fibrillation, on warfarin. On hypertension and diabetes. Patient presents to the hospital with palpitations found to be in atrial flutter with RVR. He received diltiazem and and converted to sinus rhythm. He was call managed by cardiology he was started on amiodarone and beta dora dose was increased. After which his rate was not controlled and he was continued on warfarin for stroke prophylaxis. His electrolytes were repleted. He was continued on the rest of his chronic medications. Echocardiogram revealed rheumatic mitral valve with moderate mitral stenosis, he said follow-up with cardiology as an outpatient. Discharge diagnoses Atrial flutter with RVR Hypomagnesemia Hyperlipidemia Hypertension Coagulopathy Gastroparesis Disposition: TO HOME OR SELFCARE Time spent for discharge: 33 minutes Core Measure Documentation - Palliative Care Palliative Care/ Comfort Measures: Not Applicable - Core Measures Any of the following diagnoses?: none Exam - Constitutional Vitals: Temp Pulse Resp BP Pulse Ox 98.2 F 73 20 153/91 99 10/06/16 07:17 10/06/16 07:17 10/06/16 07:17 10/06/16 07:17 10/06/16 07:17 General appearance: Present: no acute distress, well-nourished - EENT Eyes: Present: PERRL ENT: hearing intact, clear oral mucosa - Neck Neck: Present: supple, normal ROM - Respiratory Respiratory effort: normal Respiratory: bilateral: CTA - Cardiovascular Heart Sounds: Present: S1 & S2. Absent: rub, click - Extremities Extremities: pulses symmetrical, No edema Peripheral Pulses: within normal limits - Abdominal General gastrointestinal: Present: soft, non-tender, non-distended, normal bowel sounds Male genitourinary: Present: normal - Integumentary Integumentary: Present: clear, warm, dry - Musculoskeletal Musculoskeletal: gait normal, strength equal bilaterally - Psychiatric Psychiatric: appropriate mood/affect, intact judgment & insight - Neurologic Neurologic: CNII-XII intact, moves all extremities Plan Follow up with: PRIMARY CAREMD [Primary Care Provider] - 3-5 Days Forms: Warfarin Discharge Instruction Prescriptions: Amiodarone [Cordarone 200 MG TAB] 200 mg PO QDAY #30 tablet Metoprolol [Lopressor TAB] 50 mg PO BID #60 tablet
--- NOTE | 2016-10-06 10:30 | Progress Note ---
Assessment and Plan Paroxysmal Afib/flutter currently in sinus rhythm on warfarin as an outpatient Diabetes mellitus Hypertension Rheumatic Mitral valve disease moderate MS, mean gradient 12 mmHg. EF 60-65% on echo 02/2016. Recommendations: Continue Amiodarone and metoprolol for suppression of atrial fibrillation. Stable, cardiac hart, for discharge home today. F/U with [facility]. as scheduled . Subjective Date of service: 10/06/16 Interval history: Patient has no complaints. Stable sinus rhythm on telemetry. Objective Vital Signs Temp Pulse Resp BP Pulse Ox 10/06/16 07:17 98.2 F 73 20 153/91 99 10/06/16 04:21 97.8 F 67 20 161/105 98 10/06/16 00:10 97.8 F 75 19 149/94 99 10/05/16 20:56 75 18 10/05/16 19:51 99 10/05/16 19:20 98 F 80 18 138/83 99 10/05/16 17:21 98.3 F 78 18 136/88 100 10/05/16 16:45 87 19 125/89 98 10/05/16 16:30 78 23 130/85 10/05/16 16:15 84 25 H 133/87 99 10/05/16 16:00 73 25 H 133/85 98 10/05/16 15:45 77 18 136/87 10/05/16 15:30 84 15 127/75 100 10/05/16 15:15 76 26 H 130/85 98 10/05/16 15:00 74 23 136/86 99 10/05/16 14:45 81 29 H 129/85 10/05/16 14:30 77 15 128/86 10/05/16 14:15 78 33 H 124/81 99 10/05/16 14:00 79 22 153/97 100 10/05/16 13:45 76 27 H 139/91 98 10/05/16 13:30 77 22 130/86 99 10/05/16 13:15 81 18 130/91 10/05/16 13:00 77 26 H 131/87 10/05/16 12:45 90 21 126/95 100 - Physical Examination General: No Apparent Distress HEENT: Positive: PERRL Neck: Positive: trachea midline Cardiac: Positive: Reg Rate and Rhythm, Systolic Murmur Lungs: Positive: Decreased Breath Sounds Neuro: Positive: Grossly Intact - Labs and Meds Coagulation 10/06/16 Range/Units 05:15 PT 22.1 H (12.2-14.9) Sec. INR 1.93 H (0.87-1.13)
[2016-10-06 11:25] VITALS: BP 164/107
== END 2016-10-06 12:57 | disposition home or self-care (01) | DRG 74 ==
LOC: ED 09:56 → 4A 12:38
PROVIDERS: ADMIT Internal Medicine; ATTEND Internal Medicine
DX: E11.43 Type 2 diabetes mellitus with diabetic autonomic (poly)neuropathy (principal); K31.84 Gastroparesis; E11.65 Type 2 diabetes mellitus with hyperglycemia; I48.91 Unspecified atrial fibrillation; I10 Essential (primary) hypertension; I48.0 Paroxysmal atrial fibrillation; I05.9 Rheumatic mitral valve disease, unspecified; E78.5 Hyperlipidemia, unspecified; I05.0 Rheumatic mitral stenosis; E83.42 Hypomagnesemia; Z83.3 Family history of diabetes mellitus; Z82.49 Family history of ischemic heart disease and other diseases of the circulatory system
CPT/HCPCS: 36415; 71010; 80048; 82962; 83735; 84443; 84484; 85025; 85610; 85730; 93005; 93010; 96365; 96375; 99291; J0282; J1815; J3475

== ENCOUNTER 2017-02-10 06:49 | Emergency (ER) | payer OTHER ==
[2017-02-10 07:45] LABS: Basophils % (Auto) 0.5 % (0.0-1.8); Eosinophils % (Auto) 0.1 % (0.0-4.3); Hematocrit 36.3 % (35.5-45.6); Hemoglobin 11.7 gm/dl (11.8-15.2); Mean Corpuscular HGB Conc 32 % (32-34); Mean Corpuscular Volume 76 fl (84-94); Platelet Count 426 K/mm3 (140-440); Red Blood Count 4.76 M/mm3 (3.65-5.03); Red Cell Distribution Width 17.5 % (13.2-15.2); White Blood Count 8.9 K/mm3 (4.5-11.0)
[2017-02-10 07:46] LABS: Mean Corpuscular Hemoglobin 25 pg (28-32)
[2017-02-10 08:02] LABS: Anion Gap 21 mmol/L; BUN/Creatinine Ratio 17; Blood Urea Nitrogen 12 mg/dL (9-20); Calcium 9.7 mg/dL (8.4-10.2); Carbon Dioxide 26 mmol/L (22-30); Chloride 95.2 mmol/L (98-107); Glucose 338 mg/dL (75-100); Lipase 14 units/L (13-60); Potassium 3.9 mmol/L (3.6-5.0); Sodium 138 mmol/L (137-145)
[2017-02-10 08:20] VITALS: BP 175/96
[2017-02-10] MEDS ORDERED: NACL 0.9% 1000 ML 1,000 ML IV ONE (08:42)
[2017-02-10] MEDS ORDERED: ZOFRAN IV ONE (08:42)
[2017-02-10] MEDS ORDERED: MORPHINE IV ONE ×2 (08:42→09:50)
--- NOTE | 2017-02-10 08:48 | Emergency Department Report ---
HPI - General Chief Complaint: Nausea/Vomiting/Diarrhea Time Seen by Provider: 02/10/17 08:36 - HPI HPI: Room 18 The patient is a 46-year-old male presenting with a chief complaint of abdominal pain. The patient has a history of gastroparesis and states he came to the emergency department because his "abdominal muscles" began chapo developed nausea and vomiting. Patient states this frequently causes him to come to the emergency department. The patient states he cannot recall who his ticket dispenser changer is. The patient states his brought him to the emergency department and he is not driving Location: Abdomen Duration: 1 day Quality: pain Severity: 11/30 Modifying factors: [see above] Context: [see above] Mode of transportation: [not driving] ED Past Medical Hx - Past Medical History Hx Hypertension: Yes Hx Diabetes: Yes Hx Tuberculosis: Yes (2002) Additional medical history: hyperthyroid disease. Anemia. hyperlipidemia. AFIB. gastroporesis - Surgical History Past Surgical History?: No - Family History Family history: no significant - Social History Smoking Status: Former Smoker (none x 2 years) Substance Use Type: None - Medications Home Medications: Home Medications Medication Instructions Recorded Confirmed Last Taken Type metFORMIN [Glucophage] 1,000 mg PO BID #60 tablet 10/10/14 10/05/16 10/04/16 Rx glipiZIDE [Glucotrol] 10 mg PO BID 01/23/15 10/05/16 10/04/16 History Hydrochlorothiazide [HCTZ] 12.5 mg PO QDAY 10/05/16 10/05/16 10/04/16 History Warfarin [Coumadin] 7.5 mg PO DAILY 10/05/16 10/05/16 Unknown History Amiodarone [Cordarone 200 MG TAB] 200 mg PO QDAY #30 tablet 10/06/16 Unknown Rx Metoprolol [Lopressor TAB] 50 mg PO BID #60 tablet 10/06/16 Unknown Rx HYDROcodone/APAP 5-325 [[place] 1 each PO Q6HR PRN #10 tablet 02/10/17 Unknown Rx 5/325] Promethazine [Phenergan TAB] 25 mg PO Q6HR PRN #20 tab 02/10/17 Unknown Rx Promethazine [Phenergan] 25 mg [place] Q6HR PRN #10 supp.rect 02/10/17 Unknown Rx ED Review of Systems ROS: Stated complaint: ABD PAIN Other details as noted in HPI Gastrointestinal: abdominal pain, nausea, vomiting Physical Exam - Physical Exam Vital Signs: Vital Signs 02/10/17 02/10/17 02/10/17 07:21 07:57 08:00 Temperature 96 F L Pulse Rate 58 L 63 74 Respiratory 20 14 15 Rate Blood Pressure 204/101 175/96 Blood Pressure [Left] O2 Sat by Pulse 100 100 Oximetry 02/10/17 02/10/17 02/10/17 08:04 08:05 08:16 Temperature 97.6 F Pulse Rate 58 L 63 Respiratory 21 21 15 Rate Blood Pressure 175/96 Blood Pressure 196/99 [Left] O2 Sat by Pulse 100 100 100 Oximetry Physical Exam: GENERAL: The patient is well-developed well-nourished male lying on stretcher not appearing to be in acute distress. [] HEENT: Normocephalic. Atraumatic. Extraocular motions are intact. Patient has moist mucous membranes. NECK: Supple. Trachea midline CHEST/LUNGS: Clear to auscultation. There is no respiratory distress noted. HEART/CARDIOVASCULAR: Regular. There is no tachycardia. There is no gallop rub or murmur. ABDOMEN: Abdomen is soft, diffuse discomfort to palpation. Patient has normal bowel sounds. There is no abdominal distention. SKIN: There is no rash. There is no edema. There is no diaphoresis. NEURO: The patient is awake, alert, and oriented. The patient is cooperative. The patient has normal speech MUSCULOSKELETAL: There is no evidence of acute injury. ED Course Vital Signs 02/10/17 02/10/17 02/10/17 07:21 07:57 08:00 Temperature 96 F L Pulse Rate 58 L 63 74 Respiratory 20 14 15 Rate Blood Pressure 204/101 175/96 Blood Pressure [Left] O2 Sat by Pulse 100 100 Oximetry 02/10/17 02/10/17 02/10/17 08:04 08:05 08:16 Temperature 97.6 F Pulse Rate 58 L 63 Respiratory 21 21 15 Rate Blood Pressure 175/96 Blood Pressure 196/99 [Left] O2 Sat by Pulse 100 100 100 Oximetry - Reevaluation(s) Reevaluation #1: 02/10/17 09:51 Patient resting comfortably. When awakened he states his pain is approximately 4/10 ED Medical Decision Making - Lab Data Result diagrams: 02/10/17 07:36 02/10/17 07:33 Laboratory Tests 02/10/17 02/10/17 07:33 07:36 WBC 8.9 RBC 4.76 Hgb 11.7 L Hct 36.3 MCV 76 L MCH 25 L MCHC 32 RDW 17.5 H Plt Count 426 Lymph % (Auto) 11.9 L [place] % (Auto) 2.2 Eos % (Auto) 0.1 Baso % (Auto) 0.5 Lymph # 1.1 L [place] # 0.2 Eos # 0.0 Baso # 0.0 Seg Neutrophils % 85.3 H Seg Neutrophils # 7.6 Sodium 138 Potassium 3.9 Chloride 95.2 L Carbon Dioxide 26 Anion Gap 21 BUN 12 Creatinine 0.7 L Estimated GFR > 60 BUN/Creatinine Ratio 17 Glucose 338 H Calcium 9.7 Lipase 14 - EKG Data -: EKG Interpreted by Me EKG shows normal: sinus rhythm Rate: normal - EKG Data When compared to previous EKG there are: no significant change Interpretation: unchanged when compared t (04/30/2014) - Radiology Data Radiology results: report reviewed (abdominal x-ray 2 view), image reviewed ( abdominal x-ray 2 view) interpreted by me: Abdominal x-ray 2 view-nonobstructive bowel gas pattern. No free air - Differential Diagnosis gastroparesis, small bowel obstruction Critical care attestation.: If time is entered above; I have spent that time in minutes in the direct care of this critically ill patient, excluding procedure time. ED Disposition Clinical Impression: Nausea and vomiting, Acute abdominal pain, Gastroparesis Disposition: DC-01 TO HOME OR SELFCARE Is pt being admited?: No Does the pt Need Aspirin: No Condition: Stable Instructions: Acute Nausea and Vomiting (ED) Additional Instructions: Return to the emergency department immediately should you develop worsening symptoms, fever, inability to tolerate food or liquid or any other concerns. Prescriptions: HYDROcodone/APAP 5-325 [[place] 5/325] 1 each PO Q6HR PRN #10 tablet PRN Reason: Pain Promethazine [Phenergan TAB] 25 mg PO Q6HR PRN #20 tab PRN Reason: Nausea Promethazine [Phenergan] 25 mg [place] Q6HR PRN #10 supp.rect PRN Reason: Vomiting Referrals: PRIMARY CARE, [Primary Care Provider] - 3-5 Days BENNY MANCILLA MD [Staff Physician] - 3-5 Days (Dr. Mancilla is a ticket dispenser changer. Please follow up with him for further evaluation) Time of Disposition: 09:52
--- NOTE | 2017-02-10 09:33 | XRay Report ---
ABDOMEN, 2 views: History: Nausea and vomiting. There is no evidence of free air beneath the diaphragms. The gas pattern within the abdomen is unremarkable. There is no evidence of bowel dilatation, significant air-fluid levels, or pathologic calcifications. Organ shadows are unremarkable. IMPRESSION: Unremarkable abdomen.
[2017-02-10] MEDS ORDERED: PEPCID IV ONE (09:51)
== END 2017-02-10 10:25 | disposition home or self-care (01) ==
LOC: ED 06:49
DX: E11.43 Type 2 diabetes mellitus with diabetic autonomic (poly)neuropathy (principal); K31.84 Gastroparesis; I10 Essential (primary) hypertension; E78.5 Hyperlipidemia, unspecified; Z87.891 Personal history of nicotine dependence; Z79.01 Long term (current) use of anticoagulants
CPT/HCPCS: 36415; 74020; 80048; 83690; 85025; 93005; 93010; 96361; 96374; 96375; 96376; 99284; J2270; J2405; J7030

== ENCOUNTER 2017-03-19 04:43 | Emergency (ER) | payer OTHER ==
[2017-03-19] MEDS ORDERED: ZOFRAN IV ONE (06:52)
[2017-03-19 07:55] LABS: Basophils % (Auto) 0.5 % (0.0-1.8); Eosinophils % (Auto) 0.2 % (0.0-4.3); Lymphocytes # (Auto) 1.2 K/mm3 (1.2-5.4); Lymphocytes % (Auto) 14.5 % (13.4-35.0); Mean Corpuscular HGB Conc 31 % (32-34); Mean Corpuscular Volume 75 fl (84-94); Monocytes # (Auto) 0.2 K/mm3 (0.0-0.8); Monocytes % (Auto) 2.2 % (0.0-7.3); Red Blood Count 5.96 M/mm3 (3.65-5.03); Red Cell Distribution Width 18.9 % (13.2-15.2)
[2017-03-19 07:57] LABS: BUN/Creatinine Ratio 14; Blood Urea Nitrogen 10 mg/dL (9-20); Calcium 9.7 mg/dL (8.4-10.2); Hematocrit 44.6 % (35.5-45.6); Hemoglobin 13.9 gm/dl (11.8-15.2); Hemolysis Index 15; Mean Corpuscular Hemoglobin 23 pg (28-32)
[2017-03-19 08:07] LABS: Platelet Count 441 K/mm3 (140-440)
[2017-03-19 08:17] LABS: Bilirubin,Urine NEG (Negative); Blood,Urine NEG (Negative); Color,Urine Yellow (Yellow); Mucus,Urine FEW /HPF; Nitrite,Urine NEG (Negative); Urobilinogen,Urine < 2.0 mg/dL (<2.0)
[2017-03-19 08:30] LABS: Protein,Urine >500 mg/dL (Negative)
[2017-03-19 14:01] VITALS: BP 190/109
== END 2017-03-19 07:30 | disposition left against medical advice (07) ==
LOC: ED 04:43
DX: R11.2 Nausea with vomiting, unspecified (principal); Z53.21 Procedure and treatment not carried out due to patient leaving prior to being seen by health care provider
CPT/HCPCS: 36415; 80048; 81001; 82805; 82962; 85025; J2405

== ENCOUNTER 2017-11-16 07:03 | Emergency (ER) | payer OTHER ==
[2017-11-16 07:20] VITALS: BP 134/75
[2017-11-16 07:44] LABS: Partial Thromboplastin Time 30.4 Sec. (24.2-36.6)
[2017-11-16 07:47] LABS: BUN/Creatinine Ratio 25; Blood Urea Nitrogen 20 mg/dL (9-20); Calcium 9.9 mg/dL (8.4-10.2); Hemolysis Index 0
[2017-11-16 08:19] LABS: Basophils % (Auto) 0.4 % (0.0-1.8); Eosinophils % (Auto) 0.1 % (0.0-4.3); Hematocrit 42.7 % (35.5-45.6); Hemoglobin 14.2 gm/dl (11.8-15.2); Lymphocytes # (Auto) 1.5 K/mm3 (1.2-5.4); Lymphocytes % (Auto) 19.8 % (13.4-35.0); Mean Corpuscular HGB Conc 33 % (32-34); Mean Corpuscular Hemoglobin 26 pg (28-32); Mean Corpuscular Volume 78 fl (84-94); Monocytes # (Auto) 0.6 K/mm3 (0.0-0.8); Platelet Count 566 K/mm3 (140-440); Red Blood Count 5.48 M/mm3 (3.65-5.03); Red Cell Distribution Width 19.2 % (13.2-15.2)
[2017-11-16] MEDS ORDERED: MORPHINE IV ONE (09:22)
[2017-11-16] MEDS ORDERED: PEPCID IV ONE (09:22)
[2017-11-16] MEDS ORDERED: BENTYL IM ONE (09:22)
[2017-11-16] MEDS ORDERED: NACL 0.9% 1000 ML 1,000 ML IV ONE ×2 (09:22)
[2017-11-16] MEDS ORDERED: ZOFRAN IV ONE (09:22)
--- NOTE | 2017-11-16 09:24 | Emergency Department Report ---
Blank Doc - Documentation Documentation: Patient is a 47-year-old [place] male who is complaining of nausea vomiting epigastric discomfort. Patient states that he's had these symptoms for the past 3 days. Patient has a history gastroparesis and diabetes. Patient denies any fever or diarrhea at this time. Patient states his blood sugars in the 400s prior to arrival. A focused physical exam patient has some mild epigastric discomfort but no rebound or guarding. Patient will be moved to treatment room for IV fluids as well as meds for symptomatic relief and the patient be reassessed. Lab Results 11/16/17 11/16/17 11/16/17 Range/Units 07:16 07:19 07:19 WBC 7.6 (4.5-11.0) K/mm3 RBC 5.48 H (3.65-5.03) M/mm3 Hgb 14.2 (11.8-15.2) gm/dl Hct 42.7 (35.5-45.6) % MCV 78 L (84-94) fl MCH 26 L (28-32) pg MCHC 33 (32-34) % RDW 19.2 H (13.2-15.2) % Plt Count 566 H (140-440) K/mm3 Lymph % (Auto) 19.8 (13.4-35.0) % [place] % (Auto) 8.0 H (0.0-7.3) % Eos % (Auto) 0.1 (0.0-4.3) % Baso % (Auto) 0.4 (0.0-1.8) % Lymph # 1.5 (1.2-5.4) K/mm3 [place] # 0.6 (0.0-0.8) K/mm3 Eos # 0.0 (0.0-0.4) K/mm3 Baso # 0.0 (0.0-0.1) K/mm3 Seg Neutrophils % 71.7 H (40.0-70.0) % Seg Neutrophils # 5.4 (1.8-7.7) K/mm3 PT (12.2-14.9) Sec. INR (0.87-1.13) APTT (24.2-36.6) Sec. VBG pH (7.320-7.420) Sodium 136 L (137-145) mmol/L Potassium 3.9 (3.6-5.0) mmol/L Chloride 87.4 L (98-107) mmol/L Carbon Dioxide 31 H (22-30) mmol/L Anion Gap 22 mmol/L BUN 20 (9-20) mg/dL Creatinine 0.8 (0.8-1.5) mg/dL Estimated GFR > 60 ml/min BUN/Creatinine Ratio 25 % Glucose 361 H (75-100) mg/dL POC Glucose 307 H (70-105) Calcium 9.9 (8.4-10.2) mg/dL 11/16/17 11/16/17 Range/Units 07:19 07:22 WBC (4.5-11.0) K/mm3 RBC (3.65-5.03) M/mm3 Hgb (11.8-15.2) gm/dl Hct (35.5-45.6) % MCV (84-94) fl MCH (28-32) pg MCHC (32-34) % RDW (13.2-15.2) % Plt Count (140-440) K/mm3 Lymph % (Auto) (13.4-35.0) % [place] % (Auto) (0.0-7.3) % Eos % (Auto) (0.0-4.3) % Baso % (Auto) (0.0-1.8) % Lymph # (1.2-5.4) K/mm3 [place] # (0.0-0.8) K/mm3 Eos # (0.0-0.4) K/mm3 Baso # (0.0-0.1) K/mm3 Seg Neutrophils % (40.0-70.0) % Seg Neutrophils # (1.8-7.7) K/mm3 PT 13.7 (12.2-14.9) Sec. INR 1.00 (0.87-1.13) APTT 30.4 (24.2-36.6) Sec. VBG pH 7.466 H (7.320-7.420) Sodium (137-145) mmol/L Potassium (3.6-5.0) mmol/L Chloride (98-107) mmol/L Carbon Dioxide (22-30) mmol/L Anion Gap mmol/L BUN (9-20) mg/dL Creatinine (0.8-1.5) mg/dL Estimated GFR ml/min BUN/Creatinine Ratio % Glucose (75-100) mg/dL POC Glucose (70-105) Calcium (8.4-10.2) mg/dL
--- NOTE | 2017-11-16 10:40 | Emergency Department Report ---
ED N/V/D HPI - General Chief complaint: Nausea/Vomiting/Diarrhea Stated complaint: VIOLENT HEAVES/NAUSEA/HIGH SUGAR Time Seen by Provider: 11/16/17 09:18 Source: patient Mode of arrival: Ambulatory Limitations: No Limitations - History of Present Illness Initial comments: Patient is a 47-year-old [place] male who is complaining of nausea vomiting epigastric discomfort. Patient states that he's had these symptoms for the past 3 days. Patient has a history gastroparesis and diabetes. Patient denies any fever or diarrhea at this time. Patient states his blood sugars in the 400s prior to arrival. MD complaint: nausea, vomiting, abdominal pain Location: epigastric Radiation: none Severity: moderate Pain Scale: 4 Quality: cramping, aching Associated Symptoms: nausea/vomiting. denies: chest pain, cough, diaphoresis, fever/chills, loss of appetite, malaise, rash, dysuria, shortness of breath, syncope, weakness - Related Data Home Medications Medication Instructions Recorded Confirmed Last Taken glipiZIDE [Glucotrol] 10 mg PO BID 01/23/15 10/05/16 10/04/16 Warfarin [Coumadin] 7.5 mg PO DAILY 10/05/16 10/05/16 Unknown hydroCHLOROthiazide [HCTZ] 12.5 mg PO QDAY 10/05/16 10/05/16 10/04/16 Previous Rx's Medication Instructions Recorded Last Taken Type metFORMIN [Glucophage] 1,000 mg PO BID #60 tablet 10/10/14 10/04/16 Rx Amiodarone [Cordarone 200 MG TAB] 200 mg PO QDAY #30 tablet 10/06/16 Unknown Rx Metoprolol [Lopressor TAB] 50 mg PO BID #60 tablet 10/06/16 Unknown Rx HYDROcodone/APAP 5-325 [[place] 1 each PO Q6HR PRN #10 tablet 02/10/17 Unknown Rx 5/325] Promethazine [Phenergan TAB] 25 mg PO Q6HR PRN #20 tab 02/10/17 Unknown Rx Promethazine [Phenergan] 25 mg [place] Q6HR PRN #10 supp.rect 02/10/17 Unknown Rx Dicyclomine [Bentyl] 10 mg PO QID #15 capsule 11/16/17 Unknown Rx HYDROcodone/APAP 5-325 [[place] 1 each PO Q4HR PRN #10 tablet 11/16/17 Unknown Rx 5/325] Ondansetron [Zofran Odt] 4 mg PO Q8HR PRN #10 tab.rapdis 11/16/17 Unknown Rx Allergies Allergy/AdvReac Type Severity Reaction Status Date / Time No Known Allergies Allergy Verified 10/04/14 10:38 ED Review of Systems ROS: Stated complaint: VIOLENT HEAVES/NAUSEA/HIGH SUGAR Other details as noted in HPI Comment: All other systems reviewed and negative ED Past Medical Hx - Past Medical History Previous Medical History?: Yes Hx Hypertension: Yes Hx Diabetes: Yes Hx Tuberculosis: Yes (2002) Additional medical history: hyperthyroid disease. Anemia. hyperlipidemia. AFIB. gastroporesis - Surgical History Past Surgical History?: No - Social History Smoking Status: Former Smoker Substance Use Type: None - Medications Home Medications: Home Medications Medication Instructions Recorded Confirmed Last Taken Type metFORMIN [Glucophage] 1,000 mg PO BID #60 tablet 10/10/14 10/05/16 10/04/16 Rx glipiZIDE [Glucotrol] 10 mg PO BID 01/23/15 10/05/16 10/04/16 History Warfarin [Coumadin] 7.5 mg PO DAILY 10/05/16 10/05/16 Unknown History hydroCHLOROthiazide [HCTZ] 12.5 mg PO QDAY 10/05/16 10/05/16 10/04/16 History Amiodarone [Cordarone 200 MG TAB] 200 mg PO QDAY #30 tablet 10/06/16 Unknown Rx Metoprolol [Lopressor TAB] 50 mg PO BID #60 tablet 10/06/16 Unknown Rx HYDROcodone/APAP 5-325 [[place] 1 each PO Q6HR PRN #10 tablet 02/10/17 Unknown Rx 5/325] Promethazine [Phenergan TAB] 25 mg PO Q6HR PRN #20 tab 02/10/17 Unknown Rx Promethazine [Phenergan] 25 mg [place] Q6HR PRN #10 supp.rect 02/10/17 Unknown Rx Dicyclomine [Bentyl] 10 mg PO QID #15 capsule 11/16/17 Unknown Rx HYDROcodone/APAP 5-325 [[place] 1 each PO Q4HR PRN #10 tablet 11/16/17 Unknown Rx 5/325] Ondansetron [Zofran Odt] 4 mg PO Q8HR PRN #10 tab.rapdis 11/16/17 Unknown Rx ED Physical Exam - General Limitations: No Limitations General appearance: alert, in no apparent distress - Head Head exam: Present: atraumatic, normocephalic - Eye Eye exam: Present: normal appearance - ENT ENT exam: Present: mucous membranes moist - Neck Neck exam: Present: normal inspection - Respiratory Respiratory exam: Present: normal lung sounds bilaterally. Absent: respiratory distress, wheezes, rales, rhonchi - Cardiovascular Cardiovascular Exam: Present: regular rate, normal rhythm. Absent: systolic murmur, diastolic murmur, rubs, gallop - GI/Abdominal GI/Abdominal exam: Present: soft, tenderness (mild epigastric tenderness), normal bowel sounds. Absent: distended, guarding, rebound - Rectal Rectal exam: Present: deferred - Extremities Exam Extremities exam: Present: normal inspection - Back Exam Back exam: Present: normal inspection - Neurological Exam Neurological exam: Present: alert, oriented X3 - Psychiatric Psychiatric exam: Present: normal affect, normal mood - Skin Skin exam: Present: warm, dry, intact, normal color. Absent: rash ED Course Vital Signs 11/16/17 11/16/17 11/16/17 07:16 09:16 09:42 Temperature 98.2 F Pulse Rate 102 H Respiratory 18 17 18 Rate Blood Pressure 134/75 O2 Sat by Pulse 100 Oximetry ED Medical Decision Making - Lab Data Result diagrams: 11/16/17 07:19 11/16/17 07:19 Lab Results 11/16/17 11/16/17 11/16/17 Range/Units 07:16 07:19 07:19 WBC 7.6 (4.5-11.0) K/mm3 RBC 5.48 H (3.65-5.03) M/mm3 Hgb 14.2 (11.8-15.2) gm/dl Hct 42.7 (35.5-45.6) % MCV 78 L (84-94) fl MCH 26 L (28-32) pg MCHC 33 (32-34) % RDW 19.2 H (13.2-15.2) % Plt Count 566 H (140-440) K/mm3 Lymph % (Auto) 19.8 (13.4-35.0) % [place] % (Auto) 8.0 H (0.0-7.3) % Eos % (Auto) 0.1 (0.0-4.3) % Baso % (Auto) 0.4 (0.0-1.8) % Lymph # 1.5 (1.2-5.4) K/mm3 [place] # 0.6 (0.0-0.8) K/mm3 Eos # 0.0 (0.0-0.4) K/mm3 Baso # 0.0 (0.0-0.1) K/mm3 Seg Neutrophils % 71.7 H (40.0-70.0) % Seg Neutrophils # 5.4 (1.8-7.7) K/mm3 PT (12.2-14.9) Sec. INR (0.87-1.13) APTT (24.2-36.6) Sec. VBG pH (7.320-7.420) Sodium 136 L (137-145) mmol/L Potassium 3.9 (3.6-5.0) mmol/L Chloride 87.4 L (98-107) mmol/L Carbon Dioxide 31 H (22-30) mmol/L Anion Gap 22 mmol/L BUN 20 (9-20) mg/dL Creatinine 0.8 (0.8-1.5) mg/dL Estimated GFR > 60 ml/min BUN/Creatinine Ratio 25 % Glucose 361 H (75-100) mg/dL POC Glucose 307 H (70-105) Calcium 9.9 (8.4-10.2) mg/dL 11/16/17 11/16/17 Range/Units 07:19 07:22 WBC (4.5-11.0) K/mm3 RBC (3.65-5.03) M/mm3 Hgb (11.8-15.2) gm/dl Hct (35.5-45.6) % MCV (84-94) fl MCH (28-32) pg MCHC (32-34) % RDW (13.2-15.2) % Plt Count (140-440) K/mm3 Lymph % (Auto) (13.4-35.0) % [place] % (Auto) (0.0-7.3) % Eos % (Auto) (0.0-4.3) % Baso % (Auto) (0.0-1.8) % Lymph # (1.2-5.4) K/mm3 [place] # (0.0-0.8) K/mm3 Eos # (0.0-0.4) K/mm3 Baso # (0.0-0.1) K/mm3 Seg Neutrophils % (40.0-70.0) % Seg Neutrophils # (1.8-7.7) K/mm3 PT 13.7 (12.2-14.9) Sec. INR 1.00 (0.87-1.13) APTT 30.4 (24.2-36.6) Sec. VBG pH 7.466 H (7.320-7.420) Sodium (137-145) mmol/L Potassium (3.6-5.0) mmol/L Chloride (98-107) mmol/L Carbon Dioxide (22-30) mmol/L Anion Gap mmol/L BUN (9-20) mg/dL Creatinine (0.8-1.5) mg/dL Estimated GFR ml/min BUN/Creatinine Ratio % Glucose (75-100) mg/dL POC Glucose (70-105) Calcium (8.4-10.2) mg/dL - Medical Decision Making Patient is a 47-year-old [place] male with past medical history gastroparesis and diabetes presenting with nausea vomiting or epigastric discomfort. Patient was hydrated with 2 L of normal saline. The patient was given this for symptomatic relief and does feel better. Patient be discharged on Zofran and Bentyl and will have follow-up with his primary care. Critical care attestation.: If time is entered above; I have spent that time in minutes in the direct care of this critically ill patient, excluding procedure time. ED Disposition Clinical Impression: Hyperglycemia, Gastroparesis Disposition: DC-01 TO HOME OR SELFCARE Is pt being admited?: No Does the pt Need Aspirin: No Condition: Stable Instructions: Acute Nausea and Vomiting (ED) Referrals: PRIMARY CARE, [Primary Care Provider] - 3-5 Days Time of Disposition: 10:40
== END 2017-11-16 10:58 | disposition home or self-care (01) ==
LOC: ED 07:03
DX: E11.65 Type 2 diabetes mellitus with hyperglycemia (principal); K31.84 Gastroparesis; I10 Essential (primary) hypertension; E78.5 Hyperlipidemia, unspecified; I48.91 Unspecified atrial fibrillation; Z87.891 Personal history of nicotine dependence; Z79.01 Long term (current) use of anticoagulants
CPT/HCPCS: 36415; 80048; 82805; 82962; 85025; 85610; 85730; 96361; 96372; 96374; 96375; 99284; J0500; J2270; J2405; J7030

== ENCOUNTER 2018-09-13 08:58 | Outpatient (CLI) | payer OTHER | END 2018-09-13 08:59 | disposition home or self-care (01) | LOC: ECHO 08:58 | PROVIDERS: ATTEND Internal Medicine Cardiovascular Disease | DX: I11.9 Hypertensive heart disease without heart failure (principal); E78.00 Pure hypercholesterolemia, unspecified | CPT/HCPCS: 93306 ==

== ENCOUNTER 2019-04-12 19:54 | Emergency (ER) | payer OTHER ==
[2019-04-12] MEDS ORDERED: EPINEPHrine 1:10,000 1 MG/10 ML SYRINGE ONE (19:55)
[2019-04-12] MEDS ORDERED: SODIUM BICARB 8.4% 50 MEQ/50 ML SYRINGE IV ONE (19:55)
--- NOTE | 2019-04-12 20:47 | Emergency Department Report ---
HPI - General Time Seen by Provider: 04/12/19 20:04 - HPI HPI: 48-year-old -Thai male presents to the emergency department via EMS from home in cardiac arrest. The patient had been in cardiac arrest for about 25 minutes prior to presentation to our emergency department. The patient signed himself out AGAINST MEDICAL ADVICE from 1 of the [facility] facilities earlier today where he was admitted in the ICU for pneumonia. The patient has a past medical history of diabetes, atrial fibrillation on anticoagulation, coronary artery disease with previous and NSTEMI, and hypertension. The patient was intubated by EMS and received 4 rounds of epinephrine through an intr aosseous line, along with chest compressions for ACLS protocol. The patient remained in asystole throughout his course with EMS. ED Past Medical Hx - Past Medical History Hx Hypertension: Yes Hx Diabetes: Yes Hx Tuberculosis: Yes (2002) Additional medical history: hyperthyroid disease. Anemia. hyperlipidemia. AFIB. gastroporesis - Social History Smoking Status: Former Smoker Substance Use Type: None - Medications Home Medications: Home Medications Medication Instructions Recorded Confirmed Last Taken Type metFORMIN [Glucophage] 1,000 mg PO BID #60 tablet 10/10/14 10/05/16 10/04/16 Rx glipiZIDE [Glucotrol] 10 mg PO BID 01/23/15 10/05/16 10/04/16 History Warfarin [Coumadin] 7.5 mg PO DAILY 10/05/16 10/05/16 Unknown History hydroCHLOROthiazide [HCTZ] 12.5 mg PO QDAY 10/05/16 10/05/16 10/04/16 History Amiodarone [Cordarone 200 MG TAB] 200 mg PO QDAY #30 tablet 10/06/16 Unknown Rx Metoprolol [Lopressor TAB] 50 mg PO BID #60 tablet 10/06/16 Unknown Rx HYDROcodone/APAP 5-325 [[place] 1 each PO Q6HR PRN #10 tablet 02/10/17 Unknown Rx 5/325] Promethazine [Phenergan TAB] 25 mg PO Q6HR PRN #20 tab 02/10/17 Unknown Rx Promethazine [Phenergan] 25 mg [place] Q6HR PRN #10 supp.rect 02/10/17 Unknown Rx Dicyclomine [Bentyl] 10 mg PO QID #15 capsule 11/16/17 Unknown Rx HYDROcodone/APAP 5-325 [[place] 1 each PO Q4HR PRN #10 tablet 11/16/17 Unknown Rx 5/325] Ondansetron [Zofran Odt] 4 mg PO Q8HR PRN #10 tab.rapdis 11/16/17 Unknown Rx ED Review of Systems ROS: Stated complaint: CARDIAC ARREST Other details as noted in HPI Comment: Unobtainable due to pts medical conditions Physical Exam - Physical Exam Physical Exam: GENERAL: Patient is ill-appearing and unresponsive. HENT: Normocephalic. Atraumatic. Endotracheal tube is in place. EYES: Pupils are fixed and dilated. NECK: Supple. Trachea appears midline. CHEST/LUNGS: There are no spontaneous respirations. HEART/CARDIOVASCULAR: There are no spontaneous heart sounds. ABDOMEN: Abdomen is soft. There is no abdominal distention. SKIN: Skin is cool but dry. NEURO: Unresponsive. Does not withdraw to painful stimuli. Does not follow any commands. MUSCULOSKELETAL: There is no obvious deformity. No palpable femoral or radial pulses. ED Medical Decision Making - Medical Decision Making This patient came in as a cardiac arrest. He had already been unresponsive and receiving CPR/ACLS protocol for about 25 minutes prior to arrival at our facility. The patient was switched over to our gurney in room 21 and attached to the [facility] and hall monitor and is still in asystole. Chest compressions were continued, as well as ACLS protocol. The patient was given a dose of epinephrine and sodium bicarbonate immediately. There were breath sounds heard with bag valve ventilation through the ET tube. Patient received a total of 4 rounds of ACLS protocol with and epinephrine given each time and each pulse and rhythm check showed asystole. Overall this means that patient had 7 rounds of epinephrine given, remained in asystole without return of spontaneous circulation. Time of was called at 2002. The patient's family members were notified of the patient's expiration. Critical Care Time: Yes Critical care time in (mins) excluding proc time.: 31 Critical care attestation.: If time is entered above; I have spent that time in minutes in the direct care of this critically ill patient, excluding procedure time. Critical care time was spent on this patient in doing his initial evaluation, supervision of ACLS protocol and discussion with the patient's family regarding his expiration. Critical Care Time: 31 minutes ED Disposition Clinical Impression: Cardiopulmonary arrest, Cardiac arrest Disposition: DC-20 Is pt being admited?: No Time of Disposition: 22:09
== END 2019-04-13 03:24 ==
LOC: ED 19:54
DX: I46.9 Cardiac arrest, cause unspecified (principal); I10 Essential (primary) hypertension; E11.9 Type 2 diabetes mellitus without complications; E05.00 Thyrotoxicosis with diffuse goiter without thyrotoxic crisis or storm; Z86.2 Personal history of diseases of the blood and blood-forming organs and certain disorders involving the immune mechanism; Z87.891 Personal history of nicotine dependence; Z79.899 Other long term (current) drug therapy
CPT/HCPCS: 99285; J0171